=== PATIENT | male | born 1940 | race Caucasian/White ===

== ENCOUNTER 2017-01-06 16:15 | Inpatient (IN) | payer MEDICARE ==
[~2017-01-06] VITALS: Ht 182.9 cm; Wt 145.2 kg
[2017-01-06] VITALS (19 sets, daily range): BP systolic 0–150; BP diastolic 0–82; PULSE 48–84; RESP 8–24; TEMP 96.8–97.5; O2SAT 94–100
[~2017-01-06 16:15] MED LIST: ALBU0.08 NEB; FOSA70TA PO; FURO1TAB62 PO; LEVO50TA4 PO; LISI-515 PO; METO100T PO; OXYC1TAB63 PO; POTA20TA5 PO; SENN1TAB2 PO; VITA2000 PO; XARE20TA PO
[2017-01-06] MEDS ORDERED: NOREPINEPHRINE 4 MG/4 ML AMP ONE (16:35)
[2017-01-06] MEDS ORDERED: SODIUM CHLORIDE 0.9% FLUSH 5 ML FLUSH IVF PRN (17:15)
[2017-01-06] MEDS ORDERED: ASPIRIN 300 MG SUPP RECTAL ONE (17:15)
[2017-01-06] MEDS ORDERED: LEVO25TA4 PO (17:19)
[2017-01-06] MEDS ORDERED: LISI-515 PO (17:19)
[2017-01-06] MEDS ORDERED: XARE20TA PO (17:19)
--- NOTE | 2017-01-06 17:39 | RADRPT ---
EXAM DATE/TIME: 01/06/2017 17:12 [facility] COMPARISON: No previous studies available for comparison. INDICATIONS : Post intubation. MEDICAL HISTORY : Unobtainable. SURGICAL HISTORY : Unobtainable. ENCOUNTER: Initial ACUITY: 1 day PAIN SCORE: Non-responsive. LOCATION: Bilateral chest FINDINGS: A single view of the chest demonstrates the lungs to be symmetrically aerated without evidence of mas s, infiltrate or effusion. The cardiomediastinal contours are unremarkable. Osseous structures are intact. ET tube terminates just at the albaro pull back 3-4 cm recommended. Elevation right hemidiaph ragm CONCLUSION: ET tube terminates at the albaro pull back 3-4 cm recommended. Greg Oakes MD on January 06, 2017 at 17:37 Board Certified Radiologist. This report was verified electronically.
[2017-01-06] MEDS ORDERED: SODIUM CHLOR 0.9% 1000 ML INJ 1,000 ML IV SCH (17:44)
[2017-01-06] MEDS ORDERED: SENNOSIDES 8.6 MG TAB PO PRN (17:45)
[2017-01-06] MEDS ORDERED: CHLORHEXIDINE GLUCONATE 2 % 1 PACK (2 CLOTHS) TOP PRN (17:45)
[2017-01-06] MEDS ORDERED: fentaNYL DRIP 250 ML IV SCH (17:45)
[2017-01-06] MEDS ORDERED: NOREPINEPHRINE-DEXTROSE DRIP 250 ML IV SCH (17:45)
[2017-01-06] MEDS ORDERED: PROPOFOL 1000 MG/100 ML INJ 100 ML IV SCH (17:45)
[2017-01-06] MEDS ORDERED: SODIUM CHLORIDE 0.9% FLUSH 5 ML FLUSH IV FLUSH PRN (17:45)
[2017-01-06] MEDS ORDERED: ACETAMINOPHEN 325 MG TAB PO PRN (17:45)
[2017-01-06] MEDS ORDERED: ONDANSETRON HCL 4 MG/2 ML VIAL IV PRN (17:45)
[2017-01-06] MEDS ORDERED: MISCELLANEOUS NURSING INFORMATION XX SCH (17:45)
[2017-01-06] MEDS ORDERED: AMIODARONE INJ 900 MG in D5W 500 ML (EXCEL BAG) 482 ML IV SCH (17:45)
[2017-01-06] MEDS ORDERED: RESP: ALBUTEROL 2.5 MG/IPRATROPIUM 0.5 MG NEB (PRN) INH (17:45)
[2017-01-06 17:57] LABS: BLOOD GAS BASE EXCESS -6.9 mmol/L (-2-2); BLOOD GAS CARBOXYHEMOGLOBIN 1.7 % (0-4); BLOOD GAS HCO3 19 mmol/L (22-26); BLOOD GAS METHEMOGLOBIN 2.2 % (0-2); BLOOD GAS O2 HGB SATURATION 90 % (90-100); BLOOD GAS PCO2 45 mmHg (38-42); BLOOD GAS PO2 78 mmHG (61-120); BLOOD GAS TOTAL HGB 15.9 G/DL (12.0-16.0); TEMP CORR TO 98.6
[2017-01-06 17:58] LABS: CRITICAL VALUE YES; DRAW SITE RT RADIAL; FIO2 100 %; NUMBER OF ARTERIAL PUNCTURES 1; OXYGEN DEVICE VENTILATOR; STAT NO; VENT SETTINGS A/C14/550/PEEP10
--- NOTE | 2017-01-06 18:01 | HHI.HP ---
[facility] Service Critical Care Medicine Primary Care Physician Andreina Hayes MD Admission Diagnosis S/P Cardiac arrest Diagnosis: (1) Cardiac arrest Diagnosis: Principal (2) V tach Diagnosis: Principal (3) Coronary artery disease Diagnosis: Principal (4) Dilated cardiomyopathy Diagnosis: Principal (5) Aortic valve sclerosis Diagnosis: Principal (6) Left bundle branch block Diagnosis: Principal (7) Anticoagulant long-term use Diagnosis: Principal (8) Hypothyroidism Diagnosis: Principal (9) Osteoarthritis Diagnosis: Principal (10) Cardiogenic shock Diagnosis: Principal (11) Obstructive sleep apnea Diagnosis: Principal (12) Acute respiratory failure Diagnosis: Principal Chief Complaint: Witnessed V. tach arrest Travel History International Travel<30 Days: No Contact w/Intl Traveler <30 Da: No Traveled to Known Affected Are: No History of Present Illness 76-year-old male. Real name is Karthikeyan Zapata. [birth year][address] [place]. 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 He presented the [facility] with the following history. At home, patient was in an argument with her son and girlfriend. He certainly clashes heart. CPR was initiated by EMS. Each is noted to be in V. tach, V. fib possibly torsades and was in asystole upon arrival to [facility]. Patient received 9 mg epinephrine, 4 and 50 mg amiodarone, 3 mg lidocaine and 2 g magnesium prior to arrival. CPR continued this facility where he received 5 mill grams epinephrine , 2 ampules sodium bicarbonate, one ampule of calcium chloride and was defibrillated twice with 203 100 J. He is currently on a Levophed drip. All laboratory are currently pending with return of spontaneous circulation 55 minutes and a code. Patient is currently in decerebrate type positioning. Pupils are slightly reactive and sluggish. Overbreathing the ventilator. Review of Systems ROS Limitations: Intubated Past Family Social History Allergies: Coded Allergies: No Known Allergies (Unverified , 01/06/17) Past Medical History Hypothyroidism Hypertension Dilated cardiopathy ejection fraction 37% 2012 Aortic valve sclerosis Coronary artery disease Dyslipidemia Chronic left bundle branch block DJD Chronic Xarelto use obstructive sleep apnea History of CT 5 Past Surgical History Bilateral total knee replacements Lipoma removal right back Reported Medications Previously on lisinopril 20 mg twice a day Xarelto 20 mg by mouth daily Metoprolol 100 mg by mouth twice a day Fosamax 70 mg by mouth daily Levoxyl 50 g daily Lasix 20 mg by mouth twice a day Potassium chloride 20 mEq by mouth twice a day Vitamin D 2000 units twice a day Senokot with Colace 1 tablet twice a day Active Ordered Medications Reviewed in EMR Family History Mother with heart failure and diabetes. Father with cirrhosis Social History Quit Tobacco 45 years ago. No documented alcohol or IV drug use. Physical Exam Vital Signs Vital Signs Date Time Temp Pulse Resp B/P Pulse Ox O2 Delivery O2 Flow Rate FiO2 01/06/17 17:40 72 12 127/60 95 Ventilator 100 01/06/17 17:15 72 12 108/57 95 Ventilator 100 01/06/17 17:10 100 01/06/17 17:08 96.8 76 12 96 Ventilator 100 01/06/17 16:57 76 101/66 96 01/06/17 16:54 72 103/58 94 100 01/06/17 16:45 58 83/56 94 100 01/06/17 16:39 48 133/80 94 100 01/06/17 16:20 94 Bag Valve 01/06/17 16:18 0/0 94 Physical Exam GENERAL: 76-year-old male, critically ill currently resting in bed in no acute distress SKIN: Warm and dry. No rash HEAD: Atraumatic. Normocephalic. EYES: Pupils equal and round about 2 mm bilaterally and sluggish. No scleral icterus. No injection or drainage. ENT: No nasal bleeding or discharge. Mucous membranes pink and moist. Orotracheally intubated NECK: Trachea midline. No JVD. Supple CARDIOVASCULAR: Bradycardic, RR. S1, S2. No S4. RESPIRATORY: Minutes per sounds throughout due to body habitus Breath sounds equal bilaterally. GASTROINTESTINAL: Abdomen soft, obese. Bowel sounds are not appreciated. Hepatic and splenic margins not palpable. MUSCULOSKELETAL: Extremities with trace lower extremity nonpitting edema. No obvious deformities. NEUROLOGICAL: Sedate on the ventilator. Positive corneal reflex. Positive gag. Downward toes. Decerebrate Positioning bilateral upper extremities. Imaging Last Impressions Chest X-Ray 01/06/17 0686 Signed Impressions: Service Date/Time: Friday, January 06, 2017 17:12 - CONCLUSION: ET tube terminates at the albaro pull back 3-4 cm recommended. Greg Oakes MD Assessment and Plan Assessment and Plan Neuro/Psych: Acute encephalopathy rule out anoxic brain injury CT head ordered with Xarelto use status post 55 minute code Patient was ordered propofol/fentanyl drips for sedation/analgesia while intubated Goal of RA SS -2 Daily sedation vacation Possibly involve hypothermia protocol which involved Nimbex drip. CV: Witnessed V. tach arrest Coronary disease History of CT 5 Dilated cardiopathy ejection was 37% 2012 Aortic valve sclerosis Hypertension Dr. Wallis/cardiology notified. EKG revealed sinus bradycardia/left bundle branch block which is chronic. Troponin is currently pending Stat echocardiogram ordered. We'll cycle troponins every 6 hours 2 Consider hypothermia protocol Currently on amiodarone drip. Resp: Acute hypoxemic respiratory failure History of obstructive sleep apnea ACV 15/550/10/100 Ventilator bundle Bronchodilator therapy every 6 hours and as needed Spontaneous breathing trials when clinically indicated Chest x-ray Revealed ET tube at albaro. We'll pull back 2-3 cm to reevaluate GI: Patient is currently nothing by mouth Protonix for GI prophylaxis Colace/as needed Senokot for bowel regimen : Soler will be placed for accurate I's and O's in a critically ill patient Endo: Hypothyroidism Sliding-scale insulin with Accu-Cheks to maintain euglycemia/medium regimen every 6 hours Continue Levoxyl 25 g by mouth daily. Check TSH Renal: Follow-up on BMP. Last creatinine within normal limits. Heme: Chronic Xarelto use CBC currently within normal limits. Check coags ID: Monitor for infection MSK: Morbid obesity DJD Weight loss encouraged. PT evaluate and treat FEN: Follow-up on BMP. Access - Currently with right femoral TLC. Placed in ED day #1 Prophylaxis - GI - Protonix - DVT - SCD/Xarelto use Critical Care: The total critical care time was 95 minutes. Time to perform other separately billable procedures was not included in the critical care time. Addendum: Patient re evaluated after arrival to ICU. Unchanged neuro exam. CT head is pending. Remains on 11 mcg/min of Levophed and will re evaluate after CT head for induced hypothermia. If remains on single pressor, will initiate induced hypothermia Code Status Full code Discussed Condition With ED physician. Son and girlfriend. Care plan discussed and all questions answered. Problem Qualifiers (1) Coronary artery disease: (2) Hypothyroidism: Qualified Code: E03.9 - Hypothyroidism, unspecified type (3) Osteoarthritis: Frank Ansari MD Jan 06, 2017 18:01 Sary Pardo MD Jan 06, 2017 19:27
[2017-01-06 18:02] LABS: AUTOMATED NEUTROPHIL # 3.1 TH/MM3 (1.8-7.7); BASOPHIL # 0.1 TH/MM3 (0-0.2); BASOPHIL % 0.4 % (0.0-2.0); EOSINOPHIL # 0.1 TH/MM3 (0-0.4); HEMATOCRIT 47.2 % (39.0-51.0); LYMPH % 69.1 % (9.0-44.0); LYMPHOCYTE # 8.8 TH/MM3 (1.0-4.8); MEAN CELL VOLUME 96.3 FL (80.0-100.0); MEAN CORPUSCULAR HGB CONC 32.2 % (32.0-36.0); MONO % 5.1 % (0.0-8.0); NEUT % 24.4 % (16.0-70.0); PLATELET COUNT 158 TH/MM3 (150-450); RED CELL DISTRIBUTION WIDTH 13.6 % (11.6-17.2); WHITE BLOOD COUNT 12.7 TH/MM3 (4.0-11.0)
[2017-01-06 18:07] LABS: BACTERIA, URINE FEW /hpf; BLOOD, URINE MOD (NEG); COMMENT (UR) CATH-CULTURE IND; CULTURE IF INDICATED CATH CULTURE IND; GLUCOSE,URINE NEG (NEG); HEMO FLAGS AUTO DIFF; HYALINE CAST, URINE 5 /lpf (RARE); KETONE, URINE NEG (NEG); MUCUS URINE FEW /lpf (OCC); NITRITE,URINE NEG (NEG); SQUAMOUS EPITHELIAL CELL URINE <1 /hpf (0-5); URINE COLOR YELLOW (YELLW/STRAW)
[2017-01-06 18:10] LABS: APTT (PATIENT) 25.7 SEC (24.3-30.1); INTERNATIONAL NORMALIZED RATIO 1.2 RATIO; PROTHROMBIN TIME - PATIENT 13.6 SEC (9.8-11.6)
--- NOTE | 2017-01-06 18:15 | PD ---
HPI Chief Complaint: Code Blue Time Seen by Provider: 17:13 Travel History International Travel<30 days: No Contact w/Intl Traveler<30days: No Traveled to known affect area: No History of Present Illness HPI Patient is a 76 year old male BIBEMS in cardiac arrest, CPR in progress, after he passed out at home. Per family, he was arguing with his son and his son's girlfriend when he suddenly grabbed his chest and collapsed. Per , he has had 5 "mini heart attacks" and was told by his continuous still operator that "the bottom" of his heart does not work properly. His says he has not been complaining of anything lately and was feeling well prior to the event. Per family, he had been working on losing weight and succeeding. They report he has not had fevers or any illness recently. [facility] Past Medical History Medical History: Unable to Obtain Past Surgical History Surgical History: Unable to Obtain Social History Tobacco Use: No Allergies-Medications (Allergen,Severity, Reaction): Coded Allergies: No Known Allergies (Verified , 11/26/16) Reported Meds & Prescriptions Reported Meds & Active Scripts Active Albuterol Neb (Albuterol Sulfate) 2.5 Mg/3 Ml Neb 2.5 Mg NEB Q6HR Lasix (Furosemide) 20 Mg Tab 20 Mg PO BID Take one tablet in the morning and then 1 tablet at 2-3 pm Reported Senna-Docusate Sodium (Sennosides-Docusate Sodium) 8.6-50 Mg Tab 2 Tab PO DAILY Vitamin D3 (Cholecalciferol) 2,000 Unit Cap 2,000 Units PO BID Potassium Chloride Microencaps 20 Meq Tab 20 Meq PO Q12HR Xarelto (Rivaroxaban) 20 Mg Tab 20 Mg PO DAILY Oxycodone-Acetaminophen 5-325 mg Tab 1 Tab PO Q6H PRN Metoprolol Tartrate 100 Mg Tab 100 Mg PO BID Lisinopril 20 Mg Tab 20 Mg PO BID Levothyroxine (Levothyroxine Sodium) 50 Mcg Tab 50 Mcg PO DAILY Fosamax (Alendronate Sodium) 70 Mg Tab 70 Mg PO Q7D Levothyroxine (Levothyroxine Sodium) 25 Mcg Tab 25 Mcg PO DAILY Lisinopril 20 Mg Tab 20 Mg PO DAILY Xarelto (Rivaroxaban) 20 Mg Tab 20 Mg PO DAILY Review of Systems ROS Limitations: Clinical Condition, Unresponsive Physical Exam Exam Limitations: Clinical Condition Narrative GENERAL: Unresponsive, intubated SKIN: Warm and dry. No wounds. HEAD: Atraumatic. Normocephalic. EYES: Pupils equal and round, unreactive. No scleral icterus. ENT: Mucous membranes pink and moist. NECK: Trachea midline. No JVD. CARDIOVASCULAR: absent pulse RESPIRATORY: No spontaneous breathing. Breath sounds equal bilaterally. GASTROINTESTINAL: Abdomen soft, nondistended. MUSCULOSKELETAL: No obvious deformities. No clubbing. No cyanosis. No edema. NEUROLOGICAL: unconscious Data Data Last Documented VS Orders Norepinephrine Inj (Levophed Inj) (01/06/17 16:35) Electrocardiogram (01/06/17 16:37) Labs Laboratory Tests Test 01/06/17 17:00 White Blood Count 12.7 TH/MM3 Red Blood Count 4.90 MIL/MM3 Hemoglobin 15.2 GM/DL Hematocrit 47.2 % Mean Corpuscular Volume 96.3 FL Mean Corpuscular Hemoglobin 31.0 PG Mean Corpuscular Hemoglobin 32.2 % Concent Red Cell Distribution Width 13.6 % Platelet Count 158 TH/MM3 Mean Platelet Volume 11.3 FL Neutrophils (%) (Auto) 24.4 % Lymphocytes (%) (Auto) 69.1 % Monocytes (%) (Auto) 5.1 % Eosinophils (%) (Auto) 1.0 % Basophils (%) (Auto) 0.4 % Neutrophils # (Auto) 3.1 TH/MM3 Lymphocytes # (Auto) 8.8 TH/MM3 Monocytes # (Auto) 0.6 TH/MM3 Eosinophils # (Auto) 0.1 TH/MM3 Basophils # (Auto) 0.1 TH/MM3 CBC Comment AUTO DIFF Differential Total Cells 100 Counted Neutrophils % (Manual) 37 % Band Neutrophils % 1 % Lymphocytes % 50 % Monocytes % 9 % Eosinophils % 2 % Neutrophils # (Manual) 5.0 TH/MM3 Metamyelocytes 1 % Differential Comment FINAL DIFF MANUAL Platelet Estimate NORMAL Platelet Morphology Comment NORMAL Acanthocytes OCC Urine Color YELLOW Urine Turbidity HAZY Urine pH 7.0 Urine Specific [place] 1.012 Urine Protein 30 mg/dL Urine Glucose (UA) NEG mg/dL Urine Ketones NEG mg/dL Urine Occult Blood MOD Urine Nitrite NEG Urine Bilirubin NEG Urine Urobilinogen LESS THAN 2.0 MG/DL Urine Leukocyte Esterase TRACE Urine RBC /hpf Urine WBC 10 /hpf Urine Squamous Epithelial <1 /hpf Cells Urine Amorphous Sediment FEW Urine Bacteria FEW /hpf Urine Hyaline Casts 5 /lpf Urine Mucus FEW /lpf Microscopic Urinalysis Comment CATH-CULTURE IND MDM Medical Decision Making Medical Screen Exam Complete: Yes Emergency Medical Condition: Yes Interpretation(s) ECG shows LBBB with deep ST depressions II, avF, V4-V6 Differential Diagnosis STEMI vs sepsis vs ICH Narrative Course Patient is a 76 year old male BIBEMS in cardiac arrest. Per EMS, they performed CPR for 35 minutes prior to arrival. EMS states he was in Vfib/Vtach the entire time. He received 9 doses of epinephrine, 450 mg Amiodarone, 300mg Lidocaine, and 11 defibrillations, prior to arrival. They report he went into asystole just before coming into the ED. Patient was intubated by EMS. In the ED, ACLS protocols were followed. Patient received 5 doses of epinepherine, 1 g of Calcium, 2 amps of bicarb and 2 rounds of defibrillation at 200J then 300J. Patient had return of pulses after last epinephrine dose and defibrillation. Patient was started on Levophed as well as Amiodarone drip. Femoral central line placed. CXR shows ETT in place, slightly deep. Tube was repositioned by respiratory therapist. Patient admitted to ICU. I spoke with Dr. Wallis of cardiology regarding going to the laborer plumbing. At this time, Dr. Wallis feels the patient is not stable enough and would like an echo performed. Critical Care Narrative Aggregate critical care time was 60 minutes. Time to perform other separately billable procedures was not included in the critical care time. My time did not include minutes spent treating any other patients simultaneously or on activities that did not directly contribute to the patient's treatment. The services I provided to this patient were to treat and/or prevent clinically significant deterioration that could result in: Serious illness or I provided critical care services requiring my management, as noted below: Chart data review, documentation time, medication orders and management, vital sign assessments/reviewing monitor data, ordering and reviewing lab tests, ordering and interpreting/reviewing x-rays and diagnostic studies, care of the patient and discussion of the patient with the admitting physicians. Procedures Procedure Narrative CENTRAL VENOUS LINE: The site was prepped with Betadine and sterilely draped. It was infiltrated with 1% lidocaine plain. The deep vein was cannulated using normal Seldinger technique. A triple lumen central line was placed in the right femoral site and secured with simple interrupted suture. The site was sterilely dressed. The patient tolerated the procedure well. Diagnosis Primary Impression: Cardiac arrest Admitting Information Admitting Physician Requests: it Melonie Madden MD Jan 06, 2017 18:15
[2017-01-06 18:17] LABS: BICARBONATE 20.9 MEQ/L (21.0-32.0); MAGNESIUM 3.4 MG/DL (1.5-2.5); POTASSIUM 3.4 MEQ/L (3.5-5.1); TOTAL BILIRUBIN ADULT 0.4 MG/DL (0.2-1.0)
[2017-01-06] MEDS ORDERED: POTASSIUM CHLORIDE INJ 30 MEQ in SODIUM CHLORIDE 0.9% INJ 100 ML IV-CENTRAL ONE (18:45)
[2017-01-06 18:47] LABS: BLOOD GAS VENOUS BASE EXCESS -2.7 mmol/L (-2-2); BLOOD GAS VENOUS HCO3 24 mmol/L (22-26); BLOOD GAS VENOUS O2 CONTENT 10.6 Vol % (9.0-17.0); BLOOD GAS VENOUS O2 HGB SAT 45 % (70-76); BLOOD GAS VENOUS PCO2 62 mmHg (44-48); BLOOD GAS VENOUS PO2 34 mmHg (35-40); BLOOD GAS VENOUS pH 7.21 (7.360-7.400); TEMP CORR TO 98.6
[2017-01-06 18:48] LABS: CRITICAL VALUE YES; FIO2 100 %; OXYGEN DEVICE VENTILATOR
[2017-01-06 18:49] LABS: DRAW SITE CENTRAL LINE; STAT NO
[2017-01-06 18:57] LABS: BANDS 1 % (0-6); EOSINOPHILS 2 % (0-4); METAMYELOCYTES 1 % (0-1); POLYS (SEG NEUTROPHILS) 37 % (16-70); WBC DIFF SAMPLE 100
[2017-01-06 18:58] LABS: ACANTHOCYTES OCC (NORMAL); PLATELET ESTIMATE SMEAR NORMAL (NORMAL); PLATELET MORPHOLOGY NORMAL (NORMAL); SCAN/DIFF FINAL DIFF MANUAL
[2017-01-06] MEDS ORDERED: SODIUM BICARBONATE 8.4% INJ 50 MEQ/50 ML SYR IV PUSH ONE (19:15)
--- NOTE | 2017-01-06 19:44 | RADRPT ---
EXAM DATE/TIME: 01/06/2017 19:15 [facility] COMPARISON: No previous studies available for comparison. INDICATIONS : Altered mental status today. RADIATION DOSE: 56.35 CTDIvol (mGy) MEDICAL HISTORY : Non-responsive. SURGICAL HISTORY : Non-responsive. ENCOUNTER: Initial ACUITY: 1 day PAIN SCALE: 0/10 LOCATION: Bilateral head TECHNIQUE: Multiple contiguous axial images were obtained of the head. Using automated exposure control and adj ustment of the mA and/or kV according to patient size, radiation dose was kept as low as reasonably a chievable to obtain optimal diagnostic quality images. FINDINGS: CEREBRUM: The ventricles are normal for age. No evidence of midline shift, mass lesion, hemorrhage or acute in farction. No extra-axial fluid collections are seen. Chronic low attenuation seen in the periventric ular white matter. POSTERIOR FOSSA: The cerebellum and brainstem are intact. The 4th ventricle is midline. The cerebellopontine angle i s unremarkable. EXTRACRANIAL: There is mucoperiosteal thickening of the ethmoid air cells and posterior nasal cavity. There is near -complete opacification of the posterior nasopharynx noted. SKULL: The calvaria is intact. No evidence of skull fracture. CONCLUSION: 1. No acute intracranial abnormality demonstrated. 2. Chronic white matter changes. 3. Sinusitis and near-complete opacification of the posterior nasopharynx, presumably related to secr etions. Patient is intubated. After the patient is extubated, correlation for the possibility of a na sopharyngeal mass is recommended. Edvin Lucas MD on January 06, 2017 at 19:39 Board Certified Radiologist. This report was verified electronically.
[2017-01-06 19:47] LABS: LACTIC ACID GHOST NOT REPORTABLE
[2017-01-06] MEDS ORDERED: POTASSIUM CHLOR 40 MEQ PREMIX 100 ML IV-CENTRAL PRN ×2 (20:00)
[2017-01-06] MEDS ORDERED: POTASSIUM PHOSPHATE MONOBASIC 500 MG TAB PO/TUBE PRN (20:00)
[2017-01-06] MEDS ORDERED: MAGNESIUM OXIDE 400 MG TAB PO PRN (20:00)
[2017-01-06] MEDS ORDERED: MIDAZOLAM HCL 2 MG/2 ML VIAL IV ONE (20:00)
[2017-01-06] MEDS ORDERED: MAGNESIUM SULFATE INJ 2 GM in SODIUM CHLORIDE 0.9% INJ 96 ML IV PRN (20:00)
[2017-01-06] MEDS ORDERED: POTASSIUM CHLOR 20 MEQ PREMIX 100 ML IV PRN ×2 (20:00)
[2017-01-06] MEDS ORDERED: SODIUM PHOSPHATE INJ 30 MMOL in SODIUM CHLOR 0.9% 250 ML INJ 240 ML IV PRN (20:00)
[2017-01-06] MEDS ORDERED: VECURONIUM BROMIDE 10 MG VIAL IV ONE (20:00)
[2017-01-06] MEDS ORDERED: POTASSIUM CL 40 MEQ/30 ML LIQ UDC PO/TUBE PRN ×2 (20:00)
[2017-01-06] MEDS ORDERED: LORazepam 2 MG/ML VIAL IV PRN (20:00)
[2017-01-06] MEDS ORDERED: MAGNESIUM SULFATE INJ 4 GM in SODIUM CHLORIDE 0.9% INJ 92 ML IV PRN (20:00)
[2017-01-06] MEDS ORDERED: POTASSIUM PHOSPHATE MONOBASIC 500 MG TAB PO PRN (20:00)
[2017-01-06] MEDS ORDERED: POTASSIUM PHOSPHATE INJ 30 MMOL in SODIUM CHLOR 0.9% 250 ML INJ 250 ML IV PRN (20:00)
--- NOTE | 2017-01-06 20:37 | PD.PROCEDR ---
Central Line Procedure REASON FOR PROCEDURE Central venous access PROCEDURE PERFORMED Central line placement: US guided L femoral heat exchange catheter CONSENT Informed consent for procedure was obtained and time out performed ANESTHESIA Local injection of 1% Lidocaine DESCRIPTION OF THE PROCEDURE The patient was placed in supine, mild Trendelenburg position. The area was exposed and cleansed with ChloraPrep, times two. Large sterile drape was used to cover the patient, with the site exposed, under sterile conditions including cap, face mask, sterile gown, and sterile gloves. On single attempt, the introducer needle was inserted with negative pressure in syringe and venous flash was obtained. The guide wire was then advanced without any restriction and the needle was removed. The dilator was used without any complications. Using Seldinger technique the 45 cm 5 lumen heat exchange catheter was advanced over the guide wire to a depth of 41 centimeters. The guide wire was removed. All ports were aspirated with dark venous blood return and flushed easily with sterile saline. All ports were capped. Antibiotic disc was placed around central line at puncture site. The central line was secured to the skin with two interrupted 2.0 silk sutures. The area was bandaged with sterile see- through central line bandage. RADIOLOGICAL DATA Ultrasound guidance was used to locate L femoral vein COMPLICATIONS: No apparent complications ESTIMATED BLOOD LOSS: Less than 1 cc. Sary Pardo MD Jan 06, 2017 20:37
[2017-01-06 20:59] LABS: POTASSIUM 3.5 MEQ/L (3.5-5.1); TOTAL BILIRUBIN ADULT 0.7 MG/DL (0.2-1.0)
[2017-01-06] MEDS: DOCUSATE SODIUM 100 MG CAP PO SCH (21:00)
[2017-01-06] MEDS ORDERED: SODIUM CHLORIDE 0.9% FLUSH 5 ML FLUSH IV FLUSH SCH (21:00)
[2017-01-06] MEDS: RESP: ALBUTEROL 2.5 MG/IPRATROPIUM 0.5 MG NEB (SCH) INH (21:02)
[2017-01-06 21:13] LABS: CALCIUM-PROTEIN CORRECTED 12.1 MG/DL (8.5-10.1)
[2017-01-06] MEDS: SODIUM CHLORIDE 0.9% FLUSH 5 ML FLUSH IVF SCH (21:22)
[2017-01-06] MEDS: SODIUM CHLORIDE 0.9% FLUSH 5 ML FLUSH IVF PRN (21:23)
[2017-01-06] MEDS: fentaNYL DRIP 250 ML IV SCH (21:24)
[2017-01-06] MEDS: MIDAZOLAM 100 MG/ML INJ 100 ML IV SCH (21:25)
[2017-01-06] MEDS: NOREPINEPHRINE INJ 4 MG in SODIUM CHLOR 0.9% 250 ML INJ 250 ML IV SCH (21:25)
[2017-01-06] MEDS: CHLORHEXIDINE 0.12% (ORAL KIT) 15 ML CUP MT SCH (21:27)
[2017-01-06] MEDS: INSULIN NovoLIN REGULAR SUPPLEMENTAL SCALE SQ SCH (21:31)
[2017-01-06] MEDS: CEFEPIME INJ 1,000 MG in SODIUM CHLORIDE 0.9% INJ 100 ML IV SCH (21:35)
[2017-01-06] MEDS ORDERED: SODIUM BICARBONATE 8.4% SOLN 50 MEQ/50 ML VIAL IV SCH (22:45)
[2017-01-06] MEDS ORDERED: SODIUM CHLOR 0.9% 1000 ML INJ 2,000 ML IV SCH (23:00)
[2017-01-06 23:03] LABS: BLOOD GAS BASE EXCESS -6.1 mmol/L (-2-2); BLOOD GAS CARBOXYHEMOGLOBIN 0.9 % (0-4); BLOOD GAS HCO3 19 mmol/L (22-26); BLOOD GAS O2 HGB SATURATION 98 % (90-100); BLOOD GAS OXYGEN CONTENT 22.8 Vol % (12.0-20.0); BLOOD GAS PCO2 40 mmHg (38-42); BLOOD GAS PO2 338 mmHg (61-120); CRITICAL VALUE NO; DRAW SITE ART LINE; FIO2 100 %; OXYGEN DEVICE VENTILATOR; STAT NO; TEMP CORR TO 98.6
[2017-01-07] VITALS (18 sets, daily range): BP systolic 89–115; BP diastolic 50–82; PULSE 60–81; RESP 18–25; TEMP 91.4–91.6; O2SAT 93–100
[2017-01-07] MEDS: ARTIFICIAL TEARS OPTH SOLN 15 ML BTL EACH EYE SCH ×4 (00:04→17:45)
[2017-01-07] MEDS: ARTIFICIAL TEARS OPTH OINT 3.5 APPLIC/3.5 GM TUBO EACH EYE SCH ×7 (00:04→21:00)
[2017-01-07] MEDS: INSULIN NovoLIN REGULAR SUPPLEMENTAL SCALE SQ SCH ×5 (00:40→20:59)
[2017-01-07] MEDS: MEPERIDINE HCL 25 MG/ML VIAL IVP PRN ×2 (00:44→05:52)
[2017-01-07] MEDS: SODIUM CHLORIDE 0.9% FLUSH 5 ML FLUSH IVF PRN ×2 (00:45→05:52)
[2017-01-07 01:10] LABS: AMPHETAMINE, URINE NEG (NEG); BARBITURATES, URINE NEG (NEG); COCAINE, URINE NEG (NEG)
[2017-01-07 01:14] LABS: BACTERIA, URINE FEW /hpf; BLOOD, URINE LARGE (NEG); GLUCOSE,URINE 150 mg/dL (NEG); KETONE, URINE NEG (NEG); NITRITE,URINE NEG (NEG); PH, URINE 6.5 (5.0-8.5)
[2017-01-07 01:15] LABS: COMMENT (UR) CATH-CULTURE IND; CULTURE IF INDICATED CATH CULTURE IND; URINE COLOR RED (YELLW/STRAW)
[2017-01-07] MEDS: RESP: ALBUTEROL 2.5 MG/IPRATROPIUM 0.5 MG NEB (SCH) INH ×4 (03:43→20:04)
[2017-01-07 03:48] LABS: AUTOMATED NEUTROPHIL # 11.8 TH/MM3 (1.8-7.7); HEMO FLAGS DIFF FINAL; LYMPH % 7.1 % (9.0-44.0); MEAN CELL VOLUME 93.6 FL (80.0-100.0); MEAN CORPUSCULAR HEMOGLOBIN 30.7 PG (27.0-34.0); MEAN CORPUSCULAR HGB CONC 32.9 % (32.0-36.0); MONO % 9.4 % (0.0-8.0); NEUT % 83.5 % (16.0-70.0); PLATELET COUNT 132 TH/MM3 (150-450); RED BLOOD COUNT 4.49 MIL/MM3 (4.50-5.90); RED CELL DISTRIBUTION WIDTH 13.1 % (11.6-17.2); WHITE BLOOD COUNT 14.1 TH/MM3 (4.0-11.0)
[2017-01-07 03:54] LABS: APTT (PATIENT) 29.2 SEC (24.3-30.1); INTERNATIONAL NORMALIZED RATIO 1.4 RATIO; PROTHROMBIN TIME - PATIENT 15.3 SEC (9.8-11.6)
[2017-01-07] MEDS: CHLORHEXIDINE GLUCONATE 2 % 1 PACK (2 CLOTHS) TOP SCH (04:00)
[2017-01-07 04:22] LABS: ALKALINE PHOSPHATASE 76 U/L (45-117); ALT (GPT) 51 U/L (12-78); ANION GAP 15 MEQ/L (5-15); AST (GOT) 184 U/L (15-37); BICARBONATE 16.7 MEQ/L (21.0-32.0); BLOOD UREA NITROGEN 29 MG/DL (7-18); CHLORIDE 118 MEQ/L (98-107); GLOMERULAR FILTRATION RATE 28 ML/MIN (>89); HDL CHOLESTEROL 46.8 MG/DL (40.0-60.0); LDL CHOLESTEROL 53 MG/DL (0-99); MAGNESIUM 1.6 MG/DL (1.5-2.5); POTASSIUM 3.1 MEQ/L (3.5-5.1); SODIUM (NA) 150 MEQ/L (136-145); TOTAL BILIRUBIN ADULT 0.6 MG/DL (0.2-1.0)
[2017-01-07] MEDS ORDERED: SODIUM BICARBONATE 8.4% INJ 50 MEQ/50 ML SYR IV ONE (05:00)
[2017-01-07] MEDS ORDERED: CALCIUM CHLORIDE 10% SOLN 1 GRAM/10 ML SYR IV ONE (05:00)
[2017-01-07] MEDS ORDERED: EPINEPHrine HCL (1:10,000) 1 MG/10 ML SYRINGE IV ONE (05:00)
[2017-01-07 05:17] LABS: BLOOD GAS BASE EXCESS -12.4 mmol/L (-2-2); BLOOD GAS HCO3 14 mmol/L (22-26); BLOOD GAS METHEMOGLOBIN 0.9 % (0-2); BLOOD GAS O2 HGB SATURATION 96 % (90-100); BLOOD GAS OXYGEN CONTENT 18.4 Vol % (12.0-20.0); BLOOD GAS PCO2 36 mmHg (38-42); BLOOD GAS PO2 119 mmHg (61-120); BLOOD GAS TOTAL HGB 13.6 G/DL (12.0-16.0); TEMP CORR TO 98.6
[2017-01-07 05:18] LABS: CRITICAL VALUE YES; FIO2 45 %; OXYGEN DEVICE VENTILATOR; VENT SETTINGS AC18/600/PEEP10
[2017-01-07 05:19] LABS: DRAW SITE ART LINE; STAT NO
[2017-01-07] MEDS: LEVOTHYROXINE SODIUM 25 MCG TAB PO SCH (05:27)
[2017-01-07] MEDS ORDERED: SODIUM BICARBONATE 8.4% INJ 50 MEQ/50 ML SYR IV PUSH ONE ×2 (05:30→09:00)
[2017-01-07] MEDS ORDERED: SODIUM BICARBONATE 8.4% INJ 150 MEQ in DEXTROSE 5% IN WATE 1000ML INJ 1,000 ML IV SCH ×2 (05:30)
--- NOTE | 2017-01-07 06:23 | RADRPT ---
EXAM DATE/TIME: 01/07/2017 04:46 [facility] COMPARISON: CHEST SINGLE AP, January 06, 2017, 17:12. INDICATIONS : Short of breath. MEDICAL HISTORY : None. SURGICAL HISTORY : None. ENCOUNTER: Subsequent ACUITY: 2 days PAIN SCORE: Non-responsive. LOCATION: Bilateral chest FINDINGS: ET tube and NG tube are well placed. The heart size is enlarged. The aorta is widened. There is incre ased density in the left upper lung. Right lung is clear. CONCLUSION: Mild consolidation or atelectasis in the left upper lung. Edvin Miller MD on January 07, 2017 at 6:20 Board Certified Radiologist. This report was verified electronically.
[2017-01-07] MEDS: fentaNYL DRIP 250 ML IV SCH ×2 (06:31→21:00)
[2017-01-07] MEDS: CHLORHEXIDINE 0.12% (ORAL KIT) 15 ML CUP MT SCH ×2 (08:00→20:59)
--- NOTE | 2017-01-07 08:34 | HHI.CCPN ---
Subjective Remarks/Hospital Course 76-year-old male. Real name is Karthikeyan Zapata. 05/27/1932. Patient Ashley Basilio. 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 He presented the [facility] with the following history. At home, patient was in an argument with her son and girlfriend. He certainly clashes heart. CPR was initiated by EMS. Each is noted to be in V. tach, V. fib possibly torsades and was in asystole upon arrival to [facility]. Patient received 9 mg epinephrine, 4 and 50 mg amiodarone, 3 mg lidocaine and 2 g magnesium prior to arrival. CPR continued this facility where he received 5 mill grams epinephrine , 2 ampules sodium bicarbonate, one ampule of calcium chloride and was defibrillated twice with 203 100 J. He is currently on a Levophed drip. All laboratory are currently pending with return of spontaneous circulation 55 minutes and a code. Patient is currently in decerebrate type positioning. Pupils are slightly reactive and sluggish. Overbreathing the ventilator. Subjective 01/07: Placed on hypothermia protocol overnight. Acquired one dose of Demerol for shivering. Currently well sedated on the ventilator. Minimal pupillary response. No gag. Does not withdraw to pain. 5 cc an hour urine output. Objective Vital Signs Date Time Temp Pulse Resp B/P Pulse Ox O2 Delivery O2 Flow Rate FiO2 01/07/17 07:00 61 01/07/17 04:21 100 50 01/07/17 04:00 91.4 18 93/54 01/06/17 18:05 Ventilator Intake and Output 01/06/17 01/06/17 01/07/17 08:00 16:00 00:00 Intake Total 2217 ml Output Total 30 ml Balance 2187 ml Result Diagram: 01/07/17 0335 01/07/17 0335 Other Results Microbiology Date/Time Procedure Status Source Growth 01/06/17 23:40 Urine Culture Worksheet Urine Catheterized Urine Pending 01/06/17 23:30 Gram Stain Worksheet Sputum Endotracheal Pending 01/06/17 23:30 Sputum Culture Worksheet Sputum Endotracheal Pending Imaging Last Impressions Chest X-Ray 01/07/17 0600 Signed Impressions: Service Date/Time: Saturday, January 07, 2017 04:46 - CONCLUSION: Mild consolidation or atelectasis in the left upper lung. Edvin Miller MD Head CT 01/06/17 1740 Signed Impressions: Service Date/Time: Friday, January 06, 2017 19:15 - CONCLUSION: 1. No acute intracranial abnormality demonstrated. 2. Chronic white matter changes. 3. Sinusitis and near-complete opacification of the posterior nasopharynx, presumably related to secretions. Patient is intubated. After the patient is extubated, correlation for the possibility of a nasopharyngeal mass is recommended. Edvin Lucas MD Objective Remarks GENERAL: 76-year-old male, critically ill currently resting in bed in no acute distress SKIN: Cool and dry. Noted subtle area ecchymosis mid thorax from bruising HEAD: Atraumatic. Normocephalic. EYES: Pupils equal and round about 2 mm bilaterally and sluggish. No scleral icterus. No injection or drainage. ENT: No nasal bleeding or discharge. Mucous membranes pink and moist. Orotracheally intubated NECK: Trachea midline. No JVD. Supple CARDIOVASCULAR: RRR. S1, S2. No S4. I do not appreciate murmur RESPIRATORY: Diminished breath sounds throughout due to body habitus. Breath sounds equal bilaterally. GASTROINTESTINAL: Abdomen soft, obese. Bowel sounds are not appreciated. Hepatic and splenic margins not palpable. MUSCULOSKELETAL: Extremities with trace lower extremity nonpitting edema. No obvious deformities. NEUROLOGICAL: Sedate on the ventilator. Positive corneal reflex. Currently no gag. Does not withdraw to pain or noxious stimuli. Urinary Catheter: Yes Assessment to: Continue Soler insert reason: Prolonged Immobilization Vascular Central Line Catheter: Yes Assessment to: Continue Date of Insertion: Jan 06, 2017 Line: Central Venous Catheter Side: Right Location: Femoral A/P Assessment and Plan Neuro/Psych: Acute encephalopathy rule out anoxic brain injury CT head revealed no acute intracranial findings. Possible mass posterior nasopharynx will likely need reimaging post extubation Patient was ordered Versed drip at 5 mg an hour/fentanyl drips at 150 g an hour for sedation/analgesia while intubated Goal of RASS -2 Daily sedation vacation when clinically indicated Currently on hypothermia protocol CV: Witnessed V. tach arrest Coronary disease History of MT 5 Dilated cardiopathy ejection was 37% 2012 Aortic valve sclerosis Hypertension Lactic acidosis Dr. Wallis/cardiology notified. Dr. Richmond's patient EKG revealed sinus bradycardia/left bundle branch block which is chronic. Troponin is currently pending Stat echocardiogram ordered. Results still pending We'll cycle troponins every 6 hours 2. This was not done last night. Reordered for this morning. Currently on amiodarone drip per protocol. This was discontinued today by cardiology On aspirin 81 mg daily Lipitor 40 no grams by mouth daily. Currently norepinephrine at 12 mcg/m. Add vasopressin and epinephrine as needed to maintain MAP >65 Lactate initially trending down currently 8. Every 6 hours until clear. Resp: Acute hypoxemic respiratory failure History of obstructive sleep apnea ACV 24/600/5/40 Ventilator bundle Bronchodilator therapy every 6 hours and as needed Spontaneous breathing trials when clinically indicated Possible left upper lobe infiltrate on chest x-ray. No pneumothorax Recheck ABG with above ventilator changes GI: Elevated AST - likely cardiac Patient is currently nothing by mouth Start Glucerna 1.5 goal 55 cc an hour Protonix for GI prophylaxis Colace/ Senokot twice a day for bowel regimen : Soler will be placed for accurate I's and O's in a critically ill patient Endo: Hypothyroidism Elevated parathyroid hormone Sliding-scale insulin with Accu-Cheks to maintain euglycemia/medium regimen every 4 hours Continue Levoxyl 25 g by mouth daily. TSH within normal limits Will need parathyroid scan when appropriate Check vitamin D 25, 24 urine calcium Renal: Follow-up on BMP. Last creatinine within normal limits. Heme: Chronic Xarelto use Leukocytosis Thrombocytopenia Recheck CBC in AM. Monitor trends. Re-Check coags in a.m. currently 1.4 ID: Likely UTI Monitor for infection Day #2 cefepime day #1 daily Flagyl UA/sputum pending MSK: Morbid obesity DJD Weight loss encouraged. PT evaluate and treat FEN: Hypo-magnesium Hypernatremia Hypophosphatemia Hypo-magnesium Follow-up on BMP, mag and phosphatase in 100. Will give 2 g mag sulfate, 15 mmol potassium phosphorus IV fluids seems to sterile water with 2 ampules of sodium bicarbonate at 75 cc an hour Access - Currently with left femoral cooling catheter day #2 Prophylaxis - GI - Protonix - DVT - SCD/Xarelto use - likely start subcutaneous heparin in p.m. 01/07 Critical Care: The total critical care time was 55 minutes. Time to perform other separately billable procedures was not included in the critical care time. Addendum: Patient re evaluated after arrival to ICU. Unchanged neuro exam. CT head is pending. Remains on 11 mcg/min of Levophed and will re evaluate after CT head for induced hypothermia. If remains on single pressor, will initiate induced hypothermia Frank Ansari MD Jan 07, 2017 08:34
[2017-01-07] MEDS: SODIUM CHLORIDE 0.9% FLUSH 5 ML FLUSH IVF SCH ×2 (09:00→21:00)
[2017-01-07] MEDS ORDERED: LACTATED RINGER'S 1000 ML INJ 1,000 ML IV ONE (09:00)
[2017-01-07] MEDS ORDERED: POTASSIUM PHOSPHATE INJ 15 MMOL in SODIUM CHLORIDE 0.9% INJ 150 ML IV ONE (09:00)
[2017-01-07] MEDS: NOREPINEPHRINE INJ 4 MG in SODIUM CHLOR 0.9% 250 ML INJ 250 ML IV SCH ×3 (09:14→23:58)
[2017-01-07] MEDS: VASOPRESSIN INJ 40 UNITS in DEXTROSE 5% IN WATER 100ML INJ 98 ML IV SCH ×2 (09:21)
[2017-01-07] MEDS: EPINEPHrine (1:1000) INJ 2 MG in DEXTROSE 5% IN WATER INJ 248 ML IV SCH ×4 (09:36→23:58)
[2017-01-07] MEDS: VECURONIUM BROMIDE 10 MG VIAL IV PRN ×5 (09:37→22:58)
[2017-01-07] MEDS: MAGNESIUM SULFATE 1 GM PREMIX 100 ML IV SCH ×2 (09:58→10:21)
[2017-01-07] MEDS: metroNIDAZOLE 500 MG INJ 100 ML IV SCH ×2 (10:00→16:22)
--- NOTE | 2017-01-07 10:06 | RADRPT ---
EXAM DATE/TIME: 01/07/2017 09:21 [facility] COMPARISON: US KIDNEY/RENAL/BLADDER, February 09, 2010, 19:27. INDICATIONS : Abnormal labs. MEDICAL HISTORY : Hypothyroidism. Cardiac arrest. V tach. Coronary artery disease. Aortic valve sclerosis. SURGICAL HISTORY : Bilateral total knee replacement. Lipoma removal. ENCOUNTER: Initial ACUITY: 1 day PAIN SCORE: Nonresponsive. LOCATION: Bilateral flank MEASUREMENTS: RIGHT KIDNEY: 13.4 x 6.4 x 8.7 cm LEFT KIDNEY: 12.7 x 7.2 x 6.2 cm FINDINGS: Kidneys are echogenic with cortical thinning which can be seen with medical renal disease. No masses or hydronephrosis. There are 2 simple cysts in the lower pole right kidney measuring 30 x 25 x 29 mm and 88 x 82 x 83 mm. Simple cyst in the upper pole left kidney measures 36 x 30 x 39 mm and 37 x 29 x 20 mm. Bladder is empty and not visualized. CONCLUSION: 1. Echogenic kidneys which can be seen with medical renal disease. 2. Bilateral renal cysts. Carlos Alberto Stewart MD on January 07, 2017 at 9:57 Board Certified Radiologist. This report was verified electronically.
[2017-01-07] MEDS: CEFEPIME INJ 1,000 MG in SODIUM CHLORIDE 0.9% INJ 100 ML IV SCH ×2 (10:10→21:00)
[2017-01-07] MEDS: PANTOPRAZOLE SODIUM 40 MG VIAL IV SCH (10:11)
[2017-01-07] MEDS: DOCUSATE SODIUM 100 MG CAP PO SCH ×2 (10:12→21:00)
[2017-01-07] MEDS: POLYETHYLENE GLYCOL 17 GM PKG PO SCH (10:12)
[2017-01-07] MEDS: LACTULOSE SYRUP 20 GM/30 ML CUP PO SCH (10:12)
[2017-01-07] MEDS: ASPIRIN 81 MG CHEW TAB PO SCH (10:12)
[2017-01-07] MEDS: ATORVASTATIN 40 MG TAB NG SCH (10:19)
[2017-01-07 10:20] LABS: BLOOD GAS CARBOXYHEMOGLOBIN 1.2 % (0-4); BLOOD GAS HCO3 16 mmol/L (22-26); BLOOD GAS METHEMOGLOBIN 1.1 % (0-2); BLOOD GAS O2 HGB SATURATION 93 % (90-100); BLOOD GAS OXYGEN CONTENT 18.4 Vol % (12.0-20.0); BLOOD GAS PCO2 30 mmHg (38-42); BLOOD GAS PO2 76 mmHg (61-120); BLOOD GAS TOTAL HGB 14.1 G/DL (12.0-16.0); TEMP CORR TO 98.6
[2017-01-07 10:21] LABS: DRAW SITE ART LINE; FIO2 40 %; OXYGEN DEVICE VENTILATOR; STAT NO; ULNAR PULSE PRESENT; VENT SETTINGS 600/AC24/PEEP5
[2017-01-07 10:28] LABS: HEMATOCRIT 42.4 % (39.0-51.0); MEAN CELL VOLUME 91.9 FL (80.0-100.0); MEAN CORPUSCULAR HEMOGLOBIN 30.8 PG (27.0-34.0); MEAN CORPUSCULAR HGB CONC 33.5 % (32.0-36.0); PLATELET COUNT 151 TH/MM3 (150-450); RED BLOOD COUNT 4.62 MIL/MM3 (4.50-5.90); RED CELL DISTRIBUTION WIDTH 13.3 % (11.6-17.2); REVIEW FLAG FINAL; WHITE BLOOD COUNT 13.1 TH/MM3 (4.0-11.0)
[2017-01-07 10:46] LABS: APTT (PATIENT) 29.6 SEC (24.3-30.1); INTERNATIONAL NORMALIZED RATIO 1.3 RATIO; PROTHROMBIN TIME - PATIENT 14.2 SEC (9.8-11.6)
--- NOTE | 2017-01-07 11:27 | MB ---
cc: FRANCY ESPITIA MD DATE OF CONSULTATION 01/07/2017 REASON FOR CONSULTATION Cardiac arrest HISTORY OF PRESENT ILLNESS Mr. Zapata is a 76-year-old patient of mine. He does have a known history of an ischemic cardiomyopathy with a recent nuclear stress test in February of 2016 that showed a large fixed inferior defect and an EF of 35%. He has an ischemic cardiomyopathy, atrial fibrillation and hypertension and CHF. The patient is not responsive now and the HPI is per the records: The patient was apparently in an argument with family members when he clutched his chest and went down. EMS found him in VF and shocked him 11 times. He had CPR for 35 minutes. He subsequently was seen in the emergency room and a cool protocol was started. ALLERGIES NO KNOWN DRUG ALLERGIES. OUTPATIENT MEDICATIONS As per the record. They are known to also include: 1. Levothyroxine 2. Xarelto 3. Lisinopril CURRENT MEDICATIONS Per the record. PAST MEDICAL HISTORY Known to include: 1. Aortic sclerosis 2. Atrial fibrillation with a CHADS-VASc score of 4 (two points for age over 75, hypertension and CHF) 3. Obstructive sleep apnea 4. Myocardial infarction with an ischemic cardiomyopathy. His EF was 30% by echo in January and 35% by nuclear in February. 5. He also has a history of hypertension, hyperlipidemia, left bundle branch block, morbid obesity, hypothyroidism and bilateral TKR. SOCIAL HISTORY The patient is . REVIEW OF SYSTEMS Not obtainable FAMILY HISTORY Not obtainable PHYSICAL EXAM VITAL SIGNS: 91.4, 64, 18, 93/54. GENERAL: He is a morbidly obese man who is in no apparent distress on the ventilator. NECK: His neck is difficult to assess. LUNGS: The lungs have a bit decreased, but clear to auscultation. CARDIOVASCULAR: On examination, he has normal S1 and S2. There was a 2/6 systolic murmur. No rubs or gallops are appreciated. ABDOMEN: The abdomen is soft. EXTREMITIES: The extremities are essentially free of any edema. LAB VALUES Significant for an initial troponin of 0.17. His creatinine this morning is 2.27 with a potassium of 3.1. HEAD CT Negative for any acute intracranial abnormality. EKG shows left bundle branch block. IMPRESSION Status post cardiac arrest - The patient certainly does have a history of the same. He at this point is nonresponsive and hypotensive. He is on the ventilator and pressors under the cooling protocol. At this time, he remains a poor analytical laboratory technician candidate secondary to his comorbid conditions. The cooling protocol will be for will likely be for 24 hours. If he wakes up and is appropriate, we will certainly consider going to the analytical laboratory technician then. He still will be at very high risk secondary to his renal insufficiency and comorbid conditions. Additionally, he has been on Xarelto in an with his renal insufficiency it will take several days to wear off. His blood pressure is too low for a beta-thais. Heparin is felt relatively contraindicated with the Xarelto thus I will hold off on this right now. The patient will be continued on a statin. His blood pressure is also to low for any orville inhibitor. Francy Espitia M.D. MAIKOL/PETRONA /7:49 AM /11:14 AM
[2017-01-07] MEDS: HEPARIN-D5W INJ 250 ML IV SCH (12:23)
[2017-01-07] MEDS: BUMETANIDE INJ 100 ML IV SCH (13:11)
[2017-01-07] MEDS: MIDAZOLAM 100 MG/ML INJ 100 ML IV SCH (15:00)
--- NOTE | 2017-01-07 15:24 | EC ---
Study Study Date:01/07/2017 STUDY CONCLUSIONS SUMMARY - Left ventricle: The cavity size was normal. Wall thickness was normal. Systolic function was moderately to severely reduced by visual assessment. The estimated ejection fraction was in the range of 25% to 30%. Mild diffuse hypokinesis. - Mitral valve: Mild regurgitation. - Tricuspid valve: Mild regurgitation. - Pulmonary arteries: PA peak pressure: 37mm Hg (S). - Pericardium, extracardiac: A small to moderate pericardial effusion was identified circumferential to the heart. There was no evidence of hemodynamic compromise. If LV function is below 40, please consider prescribing an ACEI or ARB or document rationale for non-use. PROCEDURE DATA STUDY STATUS: Elective. Procedure: Transthoracic echocardiography. Image quality was suboptimal. The study was technically limited due to poor acoustic window availability. Scanning was performed from the parasternal, apical, and subcostal acoustic windows. Study completion: The patient tolerated the procedure well. Transthoracic echocardiography. M-mode, complete 2D, complete spectral Doppler, and color Doppler. Patient status: Inpatient. CARDIAC ANATOMY LEFT VENTRICLE: The cavity size was normal. Wall thickness was normal. Systolic function was moderately to severely reduced by visual assessment. The estimated ejection fraction was in the range of 25% to 30%. Mild diffuse hypokinesis. AORTIC VALVE: Probably trileaflet; mildly thickened, mildly calcified leaflets. Doppler: Transvalvular velocity was within the normal range. There was no stenosis. No regurgitation. AORTA: Aortic root: The aortic root was poorly visualized and mildly dilated. MITRAL VALVE: Structurally normal valve. Doppler: Transvalvular velocity was within the normal range. There was no evidence for stenosis. Mild regurgitation. LEFT ATRIUM: The atrium was normal in size. RIGHT VENTRICLE: The cavity size was normal. Wall thickness was normal. PULMONIC VALVE: Doppler: Transvalvular velocity was within the normal range. There was no evidence for stenosis. No regurgitation. TRICUSPID VALVE: Structurally normal valve. Doppler: Transvalvular velocity was within the normal range. Mild regurgitation. PULMONARY ARTERY: The main pulmonary artery was normal-sized. Systolic pressure was within the normal range. RIGHT ATRIUM: The atrium was normal in size. PERICARDIUM: A small to moderate pericardial effusion was identified circumferential to the heart. There was no evidence of hemodynamic compromise. SYSTEMIC VEINS: Inferior vena cava: The vessel was normal in size. BASIC MEASUREMENTS ADULT Normal Left ventricle LV internal dimension, ED, chordal level, *54.2 mm 43-52 PLAX LV internal dimension, ES, chordal level, *48 mm 23-38 PLAX Fractional shortening, chordal level, PLAX *11 % >29 LV posterior wall thickness, ED 14.3 mm IVS/LVPW ratio, ED *1.43 <1.3 Ventricular septum Septal thickness, ED 20.5 mm Aortic valve Leaflet separation *14 mm 15-26 Right ventricle RV internal dimension, ED, PLAX 26.7 mm 19-38 BASIC MEASUREMENTS ADULT Normal Aortic valve Leaflet separation *14 mm 15-26 Aorta Root diameter, ED *39 mm 20-37 Left atrium Anterior-posterior dimension, ES 36 mm 19-40 LA/aortic root ratio 0.92 DOPPLER MEASUREMENTS ADULT Normal Main pulmonary artery Pressure, S *37 mm Hg =30 Tricuspid valve Regurgitant peak velocity 262 cm/s Peak RV-RA gradient, S 27 mm Hg Maximal regurgitant velocity 262 cm/s Systemic veins Estimated CVP 10 mm Hg Right ventricle RV pressure, S *37 mm Hg <30 LEGEND: Mean values are shown as u=mean value. Asterisk (*) gipson values outside specified normal range. Prepared and signed by Eligio Dickson [id number]
--- NOTE | 2017-01-07 16:35 | EKG ---
Date Performed: 01/06/2017 Time Performed: 16:37:40 PTAGE: 89 years EKG: UNCERTAIN REGULAR RHYTHM LEFT BUNDLE BRANCH BLOCK MARKED ST DEPRESSION, CONSIDER SUBENDOCA RDIAL INJURY ABNORMAL ECG INTERPRETATION BASED ON A DEFAULT AGE OF 38 YEARS NO PREVIOUS TRACING DOCTOR: Kumar Cortez Interpretating Date/Time 01/07/2017 16:33:14
[2017-01-07] MEDS: SENNOSIDES 8.6 MG TAB PO SCH (17:45)
[2017-01-07 18:15] LABS: BLOOD GAS BASE EXCESS -11.8 mmol/L (-2-2); BLOOD GAS CARBOXYHEMOGLOBIN 1.2 % (0-4); BLOOD GAS HCO3 13 mmol/L (22-26); BLOOD GAS METHEMOGLOBIN 1.2 % (0-2); BLOOD GAS O2 HGB SATURATION 91 % (90-100); BLOOD GAS OXYGEN CONTENT 18.1 Vol % (12.0-20.0); BLOOD GAS PCO2 25 mmHg (38-42); BLOOD GAS PO2 69 mmHg (61-120); BLOOD GAS TOTAL HGB 14.2 G/DL (12.0-16.0); TEMP CORR TO 98.6
[2017-01-07 18:16] LABS: CRITICAL VALUE YES; FIO2 40 %; OXYGEN DEVICE VENTILATOR; VENT SETTINGS 600/AC24/PEEP5
[2017-01-07 18:17] LABS: DRAW SITE ART LINE; STAT NO; ULNAR PULSE PRESENT
[2017-01-07 18:40] LABS: HEMATOCRIT 39.9 % (39.0-51.0); MEAN CELL VOLUME 92.6 FL (80.0-100.0); MEAN CORPUSCULAR HEMOGLOBIN 31.1 PG (27.0-34.0); MEAN CORPUSCULAR HGB CONC 33.5 % (32.0-36.0); PLATELET COUNT 129 TH/MM3 (150-450); RED BLOOD COUNT 4.31 MIL/MM3 (4.50-5.90); RED CELL DISTRIBUTION WIDTH 13.4 % (11.6-17.2); REVIEW FLAG FINAL; WHITE BLOOD COUNT 12.1 TH/MM3 (4.0-11.0)
[2017-01-07 19:09] LABS: BICARBONATE 14.9 MEQ/L (21.0-32.0); MAGNESIUM 1.9 MG/DL (1.5-2.5)
[2017-01-07 19:15] LABS: POTASSIUM 2.7 MEQ/L (3.5-5.1)
[2017-01-07 20:12] LABS: APTT (PATIENT) GREATER THAN 153.4 SEC (24.3-30.1)
[2017-01-07] MEDS ORDERED: POTASSIUM CHLOR 20 MEQ PREMIX 100 ML IV PRN ×2 (20:15)
[2017-01-07] MEDS ORDERED: MAGNESIUM OXIDE 400 MG TAB PO PRN (20:15)
[2017-01-07] MEDS ORDERED: POTASSIUM PHOSPHATE MONOBASIC 500 MG TAB PO/TUBE PRN (20:15)
[2017-01-07] MEDS ORDERED: SODIUM PHOSPHATE INJ 30 MMOL in SODIUM CHLOR 0.9% 250 ML INJ 240 ML IV PRN (20:15)
[2017-01-07] MEDS ORDERED: POTASSIUM PHOSPHATE INJ 30 MMOL in SODIUM CHLOR 0.9% 250 ML INJ 250 ML IV PRN (20:15)
[2017-01-07] MEDS ORDERED: MAGNESIUM SULFATE INJ 2 GM in SODIUM CHLORIDE 0.9% INJ 96 ML IV PRN (20:15)
[2017-01-07] MEDS ORDERED: POTASSIUM CL 40 MEQ/30 ML LIQ UDC PO/TUBE PRN ×2 (20:15)
[2017-01-07] MEDS ORDERED: MAGNESIUM SULFATE INJ 4 GM in SODIUM CHLORIDE 0.9% INJ 92 ML IV PRN (20:15)
[2017-01-07] MEDS ORDERED: POTASSIUM PHOSPHATE MONOBASIC 500 MG TAB PO PRN (20:15)
[2017-01-07] MEDS ORDERED: POTASSIUM CHLOR 40 MEQ PREMIX 100 ML IV PRN ×2 (20:15)
[2017-01-07] MEDS ORDERED: HEPARIN SODIUM - SQ 10,000 UNITS/ML VIAL SQ SCH (21:00)
[2017-01-07 23:26] LABS: APTT (PATIENT) GREATER THAN 153.4 SEC (24.3-30.1)
[2017-01-08] VITALS (16 sets, daily range): BP systolic 93–124; BP diastolic 47–69; PULSE 72–134; RESP 24; TEMP 91.4–100; O2SAT 92–96
[2017-01-08] MEDS: INSULIN NovoLIN REGULAR SUPPLEMENTAL SCALE SQ SCH ×2 (00:25→04:33)
[2017-01-08] MEDS: ARTIFICIAL TEARS OPTH OINT 3.5 APPLIC/3.5 GM TUBO EACH EYE SCH ×4 (00:25→12:13)
[2017-01-08] MEDS: metroNIDAZOLE 500 MG INJ 100 ML IV SCH ×3 (00:28→16:03)
[2017-01-08 00:34] LABS: BICARBONATE 15.9 MEQ/L (21.0-32.0)
[2017-01-08] MEDS: VECURONIUM BROMIDE 10 MG VIAL IV PRN ×4 (00:36→06:52)
[2017-01-08 00:41] LABS: POTASSIUM 2.4 MEQ/L (3.5-5.1)
[2017-01-08 01:39] LABS: APTT (PATIENT) GREATER THAN 153.4 SEC (24.3-30.1)
[2017-01-08 02:58] LABS: APTT (PATIENT) 93.8 SEC (24.3-30.1)
[2017-01-08] MEDS: RESP: ALBUTEROL 2.5 MG/IPRATROPIUM 0.5 MG NEB (SCH) INH ×4 (03:51→20:18)
[2017-01-08] MEDS: CHLORHEXIDINE GLUCONATE 2 % 1 PACK (2 CLOTHS) TOP SCH (04:00)
[2017-01-08 04:22] LABS: AUTOMATED NEUTROPHIL # 7.1 TH/MM3 (1.8-7.7); BASOPHIL % 0.1 % (0.0-2.0); HEMATOCRIT 39.2 % (39.0-51.0); HEMO FLAGS DIFF FINAL; LYMPH % 19.9 % (9.0-44.0); LYMPHOCYTE # 2.1 TH/MM3 (1.0-4.8); MEAN CELL VOLUME 91.7 FL (80.0-100.0); MEAN CORPUSCULAR HEMOGLOBIN 30.9 PG (27.0-34.0); MEAN CORPUSCULAR HGB CONC 33.7 % (32.0-36.0); MONO % 11.3 % (0.0-8.0); NEUT % 68.7 % (16.0-70.0); PLATELET COUNT 133 TH/MM3 (150-450); RED BLOOD COUNT 4.28 MIL/MM3 (4.50-5.90); RED CELL DISTRIBUTION WIDTH 13.1 % (11.6-17.2); WHITE BLOOD COUNT 10.4 TH/MM3 (4.0-11.0)
[2017-01-08 04:28] LABS: APTT (PATIENT) 61.1 SEC (24.3-30.1); INTERNATIONAL NORMALIZED RATIO 1.3 RATIO; PROTHROMBIN TIME - PATIENT 14.3 SEC (9.8-11.6)
[2017-01-08 04:50] LABS: ALKALINE PHOSPHATASE 62 U/L (45-117); ALT (GPT) 54 U/L (12-78); ANION GAP 19 MEQ/L (5-15); AST (GOT) 133 U/L (15-37); BICARBONATE 18.4 MEQ/L (21.0-32.0); BLOOD UREA NITROGEN 43 MG/DL (7-18); CHLORIDE 108 MEQ/L (98-107); GLOMERULAR FILTRATION RATE 19 ML/MIN (>89); MAGNESIUM 1.7 MG/DL (1.5-2.5); SODIUM (NA) 145 MEQ/L (136-145); TOTAL BILIRUBIN ADULT 0.5 MG/DL (0.2-1.0)
[2017-01-08 05:03] LABS: POTASSIUM 2.4 MEQ/L (3.5-5.1)
--- NOTE | 2017-01-08 05:49 | RADRPT ---
EXAM DATE/TIME: 01/08/2017 04:43 [facility] COMPARISON: CHEST SINGLE AP, January 07, 2017, 4:46. INDICATIONS : Respiratory failure. MEDICAL HISTORY : None. SURGICAL HISTORY : None. ENCOUNTER: Subsequent ACUITY: 2 days PAIN SCORE: Non-responsive. LOCATION: Bilateral chest FINDINGS: ET tube and NG tube will place. The heart size is normal. There is widening of the aorta. There is mi ld increased density at the right base. The left lung is grossly clear. CONCLUSION: Mild right base consolidation or atelectasis. Edvin Miller MD on January 08, 2017 at 5:47 Board Certified Radiologist. This report was verified electronically.
[2017-01-08] MEDS: NOREPINEPHRINE INJ 4 MG in SODIUM CHLOR 0.9% 250 ML INJ 250 ML IV SCH ×4 (05:50→23:57)
[2017-01-08] MEDS: BUMETANIDE INJ 100 ML IV SCH (05:50)
[2017-01-08] MEDS: LEVOTHYROXINE SODIUM 25 MCG TAB PO SCH (05:52)
[2017-01-08] MEDS: SENNOSIDES 8.6 MG TAB PO SCH ×2 (05:52→17:25)
[2017-01-08 05:56] LABS: BLOOD GAS BASE EXCESS -6.8 mmol/L (-2-2); BLOOD GAS CARBOXYHEMOGLOBIN 1.4 % (0-4); BLOOD GAS HCO3 17 mmol/L (22-26); BLOOD GAS METHEMOGLOBIN 1.1 % (0-2); BLOOD GAS O2 HGB SATURATION 91 % (90-100); BLOOD GAS OXYGEN CONTENT 17.2 Vol % (12.0-20.0); BLOOD GAS PCO2 25 mmHg (38-42); BLOOD GAS PO2 65 mmHg (61-120); BLOOD GAS TOTAL HGB 13.5 G/DL (12.0-16.0); TEMP CORR TO 98.6
[2017-01-08 05:57] LABS: CRITICAL VALUE NO; DRAW SITE ART LINE; FIO2 40 %; OXYGEN DEVICE VENTILATOR; STAT NO; VENT SETTINGS AC/24/600/PEEP5
[2017-01-08] MEDS ORDERED: POTASSIUM PHOSPHATE INJ 30 MMOL in SODIUM CHLOR 0.9% 250 ML INJ 250 ML IV ONE (06:30)
[2017-01-08] MEDS ORDERED: DEXTROSE 50% IN WATER 50 ML VIAL(D50) IV PUSH PRN ×2 (06:30→20:45)
[2017-01-08] MEDS ORDERED: MISC INFORMATION XX ONE (06:30)
[2017-01-08] MEDS ORDERED: POTASSIUM CHLORIDE INJ 30 MEQ in SODIUM CHLORIDE 0.9% INJ 100 ML IV-CENTRAL ONE (06:30)
[2017-01-08] MEDS: SODIUM BICARBONATE 8.4% INJ 100 MEQ in WATER STERILE FOR INJ 1,000 ML IV SCH ×2 (06:43→20:24)
--- NOTE | 2017-01-08 06:46 | PD.CARD.PN ---
Subjective Subjective Remarks Sedated on vent Objective Medications Current Medications Medications (Trade) Dose Ordered Sig/Fareed Route Start Time Stop Time Status Last Admin (Tylenol) 650 mg Q6H PRN PO 01/06/17 17:45 (Protonix Inj) 40 mg DAILY IV 01/07/17 09:00 01/07/17 10:11 (Tears Naturale Opth Soln) 1 drop TID EACH EYE 01/06/17 18:00 01/07/17 17:45 (Zofran Inj) 4 mg Q6H PRN IV 01/06/17 17:45 (Colace) 100 mg BID PO 01/06/17 21:00 01/07/17 21:00 Miscellaneous Information 1 Q361D XX 01/06/17 17:45 (Chlorhexidine 2% Cloth) 3 pack Taper DAILY@04 TOP 01/07/17 04:00 01/03/18 03:59 Chlorhexidine Gluconate 3 pack 3 pack UNSCH PRN TOP 01/06/17 17:45 (Diprivan 1000 Mg/100ml Inj) 100 ml @ 0 mls/hr TITRATE IV 01/06/17 17:45 (Peridex 0.12% Liq) 15 ml BID@08,20 MT 01/06/17 20:00 01/07/17 20:59 Levothyroxine Sodium 25 mcg 25 mcg DAILY@06 PO 01/07/17 06:00 01/08/17 05:52 (Maxipime Inj/NS Inj) 100 ml @ 200 mls/hr Q12H IV 01/06/17 20:00 01/07/17 21:00 Lorazepam 1 mg 1 mg Q1H PRN IV 01/06/17 20:00 Midazolam HCl 100 ml @ 0 mls/hr TITRATE IV 01/06/17 20:00 01/07/17 15:00 (fentaNYL DRIP) 250 ml @ 0 mls/hr TITRATE IV 01/06/17 20:00 01/07/17 21:00 (Norcuron 10 Mg Inj) 5 mg Q1H PRN IV 01/06/17 20:00 01/08/17 05:51 (Lacrilube Opht Oint) 1 applic Q4H EACH EYE 01/06/17 20:00 01/08/17 04:34 (NS Flush) 2 ml BID IVF 01/06/17 21:00 01/07/17 21:00 IV Flush 2 ml 2 ml UNSCH PRN IVF 01/06/17 20:00 01/07/17 05:52 Miscellaneous Information 0 ml @ 0 mls/hr UNSCH IV 01/06/17 20:00 (Levophed Inj/NS 250 ml Inj) 254 ml @ 0 mls/hr TITRATE IV 01/06/17 21:00 01/08/17 05:50 (Aspirin Chew) 81 mg DAILY PO 01/07/17 09:00 01/07/17 10:12 Atorvastatin Calcium 40 mg 40 mg DAILY NG 01/07/17 09:00 01/07/17 10:19 (Flagyl 500 Mg Inj) 100 ml @ 100 mls/hr Q8H IV 01/07/17 09:00 01/08/17 00:28 (Senokot) 17.2 mg Q12H PO 01/07/17 18:00 01/08/17 05:52 (Miralax) 17 gm DAILY PO 01/07/17 09:00 01/07/17 10:12 Lactulose 30 ml 30 ml DAILY PO 01/07/17 09:00 01/07/17 10:12 Vasopressin 40 units/Dextrose 100 ml @ 1.5 mls/hr Q24H IV 01/07/17 08:22 01/07/17 09:21 (Adrenalin (1:1000) Inj/D5W Inj) 250 ml @ 0 mls/hr TITRATE IV 01/07/17 10:30 01/07/17 23:58 Insulin Human Regular 1 1 Q4HR SQ 01/07/17 12:00 01/08/17 04:33 Heparin Sodium/ Dextrose 250 ml @ 0 mls/hr TITRATE IV 01/07/17 09:45 01/07/17 12:23 Bumetanide 100 ml @ 4 mls/hr CONTINUOUS IV 01/07/17 14:45 01/08/17 05:50 Sodium Bicarbonate 100 meq/Sterile Water 1,100 ml @ 75 mls/hr [id number] IV 01/08/17 05:45 Potassium Phosphate 30 mmol/ Sodium Chloride 260 ml @ 43.333 mls/ hr ONCE ONCE IV 01/08/17 06:30 01/08/17 12:29 UNV (NovoLIN R (IV INFUSION)/NS Inj) 100 ml @ 0 mls/hr TITRATE IV 01/08/17 06:30 UNV (D50w (Vial) Inj) 25 ml UNSCH PRN IV PUSH 01/08/17 06:30 UNV Miscellaneous Information 1 1 ONCE ONCE XX 01/08/17 06:30 01/08/17 06:31 UNV Potassium Chloride 30 meq/ Sodium Chloride 115 ml @ 38.333 mls/ hr ONCE ONCE IV-CENTRAL 01/08/17 06:30 01/08/17 09:29 UNV (Magnesium Sulfate 1 Gm Premix) 100 ml @ 100 mls/hr Q1H IV 01/08/17 06:45 01/08/17 08:44 UNV Vital Signs / I&O Vital Signs Date Time Temp Pulse Resp B/P Pulse Ox O2 Delivery O2 Flow Rate FiO2 01/08/17 04:10 94 40 01/08/17 01:02 93 40 01/08/17 00:00 40 01/08/17 00:00 91.4 72 24 95/52 92 93/49 01/07/17 23:00 78 01/07/17 22:03 93 40 01/07/17 20:00 40 01/07/17 20:00 91.4 65 24 99/55 93 108/50 01/07/17 19:10 93 40 01/07/17 17:09 97 40 01/07/17 16:00 91.4 63 25 94/51 95 112/52 01/07/17 16:00 40 01/07/17 15:00 60 01/07/17 13:45 96 40 01/07/17 12:00 40 01/07/17 12:00 91.4 63 25 110/53 94 115/56 01/07/17 10:26 96 40 01/07/17 08:38 98 40 01/07/17 08:00 40 01/07/17 08:00 91.6 61 18 89/56 99 90/54 01/07/17 07:00 61 I/O 01/07/17 01/07/17 01/07/17 01/08/17 01/08/17 01/08/17 07:00 15:00 23:00 07:00 15:00 23:00 Intake Total 6316 ml 2876 ml 1526 ml 1768 ml Output Total 82 ml 237.0 ml 905.0 ml 540 ml Balance 6234 ml 2639.0 ml 621.0 ml 1228 ml Intake Oral 0 ml 0 ml IV Total 6266 ml 2786 ml 1434 ml 1595 ml Tube Feeding 32 ml 113 ml Tube Irrigant 60 ml 60 ml Other 50 ml 90 ml Output Urine Total 82 ml 37 ml 555 ml 540 ml Tube Feeding Residual Discard 200.0 ml 350.0 ml # Bowel Movements 0 0 Physical Exam GENERAL: Well developed, well nourished. No acute distress. HEENT: Jugular venous pressure is normal. CHEST: Lungs clear to auscultation bilaterally. Unlabored respiratory effort. CARDIAC: Regular rate and rhythm without S3, S4, or murmur. ABDOMEN: Soft, nontender, no hepatosplenomegaly. Bowel sounds present. EXTREMITIES: No clubbing, cyanosis, or edema. Laboratory Laboratory Tests Test 01/07/17 01/07/17 01/07/17 01/07/17 08:14 09:55 10:25 12:05 Troponin I GREATER THAN 40.00 NG/ML White Blood Count 13.1 TH/MM3 Red Blood Count 4.62 MIL/MM3 Hemoglobin 14.2 GM/DL Hematocrit 42.4 % Mean Corpuscular Volume 91.9 FL Mean Corpuscular Hemoglobin 30.8 PG Mean Corpuscular Hemoglobin 33.5 % Concent Red Cell Distribution Width 13.3 % Platelet Count 151 TH/MM3 Mean Platelet Volume 9.7 FL Prothrombin Time 14.2 SEC Prothromb Time International 1.3 RATIO Ratio Activated Partial 29.6 SEC Thromboplast Time 25-Hydroxy Vitamin D Total 26.8 ng/ML Blood Gas Puncture Site ART LINE Blood Gas Patient Temperature 98.6 Blood Gas HCO3 16 mmol/L Blood Gas Base Excess -9.0 mmol/L Blood Gas Oxygen Saturation 93 % Arterial Blood pH 7.34 Arterial Blood Partial 30 mmHg Pressure CO2 Arterial Blood Partial 76 mmHg Pressure O2 Arterial Blood Oxygen Content 18.4 Vol % Arterial Blood 1.2 % Carboxyhemoglobin Arterial Blood Methemoglobin 1.1 % Blood Gas Hemoglobin 14.1 G/DL Oxygen Delivery Device VENTILATOR Blood Gas Ventilator Setting 600/AC24/PEEP5 Blood Gas Inspired Oxygen 40 % Lactic Acid Level 10.7 mmol/L Test 01/07/17 01/07/17 01/07/17 01/07/17 18:08 18:11 22:18 23:51 Blood Gas Puncture Site ART LINE Blood Gas Patient Temperature 98.6 Blood Gas HCO3 13 mmol/L Blood Gas Base Excess -11.8 mmol/L Blood Gas Oxygen Saturation 91 % Arterial Blood pH 7.33 Arterial Blood Partial 25 mmHg Pressure CO2 Arterial Blood Partial 69 mmHg Pressure O2 Arterial Blood Oxygen Content 18.1 Vol % Arterial Blood 1.2 % Carboxyhemoglobin Arterial Blood Methemoglobin 1.2 % Blood Gas Hemoglobin 14.2 G/DL Oxygen Delivery Device VENTILATOR Blood Gas Ventilator Setting 600/AC24/PEEP5 Blood Gas Inspired Oxygen 40 % White Blood Count 12.1 TH/MM3 Red Blood Count 4.31 MIL/MM3 Hemoglobin 13.4 GM/DL Hematocrit 39.9 % Mean Corpuscular Volume 92.6 FL Mean Corpuscular Hemoglobin 31.1 PG Mean Corpuscular Hemoglobin 33.5 % Concent Red Cell Distribution Width 13.4 % Platelet Count 129 TH/MM3 Mean Platelet Volume 10.2 FL Activated Partial GREATER THAN GREATER THAN Thromboplast Time 153.4 SEC 153.4 SEC Sodium Level 148 MEQ/L 147 MEQ/L Potassium Level 2.7 MEQ/L 2.4 MEQ/L Chloride Level 112 MEQ/L 111 MEQ/L Carbon Dioxide Level 14.9 MEQ/L 15.9 MEQ/L Anion Gap 21 MEQ/L 20 MEQ/L Blood Urea Nitrogen 41 MG/DL 43 MG/DL Creatinine 2.86 MG/DL 3.01 MG/DL Estimat Glomerular Filtration 21 ML/MIN 20 ML/MIN Rate Random Glucose 411 MG/DL 454 MG/DL Lactic Acid Level 12.1 mmol/L 10.7 mmol/L Calcium Level 9.4 MG/DL 9.3 MG/DL Phosphorus Level 1.7 MG/DL 1.7 MG/DL Magnesium Level 1.9 MG/DL Troponin I 31.60 NG/ML Test 01/08/17 01/08/17 01/08/17 01/08/17 00:20 02:20 04:03 05:44 Activated Partial GREATER THAN 93.8 SEC 61.1 SEC Thromboplast Time 153.4 SEC White Blood Count 10.4 TH/MM3 Red Blood Count 4.28 MIL/MM3 Hemoglobin 13.2 GM/DL Hematocrit 39.2 % Mean Corpuscular Volume 91.7 FL Mean Corpuscular Hemoglobin 30.9 PG Mean Corpuscular Hemoglobin 33.7 % Concent Red Cell Distribution Width 13.1 % Platelet Count 133 TH/MM3 Mean Platelet Volume 9.9 FL Neutrophils (%) (Auto) 68.7 % Lymphocytes (%) (Auto) 19.9 % Monocytes (%) (Auto) 11.3 % Eosinophils (%) (Auto) 0.0 % Basophils (%) (Auto) 0.1 % Neutrophils # (Auto) 7.1 TH/MM3 Lymphocytes # (Auto) 2.1 TH/MM3 Monocytes # (Auto) 1.2 TH/MM3 Eosinophils # (Auto) 0.0 TH/MM3 Basophils # (Auto) 0.0 TH/MM3 CBC Comment DIFF FINAL Differential Comment Prothrombin Time 14.3 SEC Prothromb Time International 1.3 RATIO Ratio Sodium Level 145 MEQ/L Potassium Level 2.4 MEQ/L Chloride Level 108 MEQ/L Carbon Dioxide Level 18.4 MEQ/L Anion Gap 19 MEQ/L Blood Urea Nitrogen 43 MG/DL Creatinine 3.19 MG/DL Estimat Glomerular Filtration 19 ML/MIN Rate Random Glucose 470 MG/DL Lactic Acid Level 8.3 mmol/L Calcium Level 9.0 MG/DL Phosphorus Level 1.0 MG/DL Magnesium Level 1.7 MG/DL Total Bilirubin 0.5 MG/DL Aspartate Amino Transf 133 U/L (AST/SGOT) Alanine Aminotransferase 54 U/L (ALT/SGPT) Alkaline Phosphatase 62 U/L Total Protein 4.9 GM/DL Albumin 2.0 GM/DL Blood Gas Puncture Site ART LINE Blood Gas Patient Temperature 98.6 Blood Gas HCO3 17 mmol/L Blood Gas Base Excess -6.8 mmol/L Blood Gas Oxygen Saturation 91 % Arterial Blood pH 7.44 Arterial Blood Partial 25 mmHg Pressure CO2 Arterial Blood Partial 65 mmHg Pressure O2 Arterial Blood Oxygen Content 17.2 Vol % Arterial Blood 1.4 % Carboxyhemoglobin Arterial Blood Methemoglobin 1.1 % Blood Gas Hemoglobin 13.5 G/DL Oxygen Delivery Device VENTILATOR Blood Gas Ventilator Setting AC/24/600/PEEP5 Blood Gas Inspired Oxygen 40 % Assessment and Plan Problem List: (1) Hypokalemia Assessment and Plan: K=2.4, per [facility] (2) Cardiogenic shock Assessment and Plan: Pressor up over night (3) Acute respiratory failure Assessment and Plan: on vent per [facility] (4) Cardiac arrest Assessment and Plan: s/p 30 min CPR, 11 defibs still on cool protocol, re-warming currently (5) Coronary artery disease Assessment and Plan: medical management until neuro status is clarified (6) Dilated cardiomyopathy Assessment and Plan: EF 25-30% by ECHO BP too low for BB or AMEYA (7) V tach (8) Atrial fibrillation Problem Qualifiers (1) Coronary artery disease: Ami Richmond MD Jan 08, 2017 06:45
--- NOTE | 2017-01-08 06:54 | EKG ---
Date Performed: 01/07/2017 Time Performed: 09:17:51 PTAGE: 76 years EKG: Sinus rhythm WITH FIRST DEGREE AV BLOCK WITH OCCASIONAL VENTRICULAR PREMATURE COMPLEXES WITH OCCASIONAL SUPRAVENT RICULAR PREMATURE COMPLEXES MARKED LEFT AXIS DEVIATION LEFT BUNDLE BRANCH BLOCK Prolongation of QT in terval ABNORMAL ECG Compared to the PREVIOUS TRACING , patient now in normal sinus rhythm PREVIOUS TRACIN12/14/2015 05.43 DOCTOR: Kumar Cortez Interpretating Date/Time 01/08/2017 06:54:24
[2017-01-08] MEDS: fentaNYL DRIP 250 ML IV SCH (07:58)
[2017-01-08] MEDS: EPINEPHrine (1:1000) INJ 2 MG in DEXTROSE 5% IN WATER INJ 248 ML IV SCH ×2 (07:59)
[2017-01-08] MEDS: MIDAZOLAM 100 MG/ML INJ 100 ML IV SCH (08:00)
[2017-01-08] MEDS: INSULIN REGULAR (IV INFUSION) 100 UNITS in SODIUM CHLORIDE 0.9% INJ 99 ML IV SCH ×2 (09:11→12:31)
--- NOTE | 2017-01-08 09:14 | MB ---
cc: TRE GARCIA MD DATE OF CONSULTATION 01/07/17 REASON FOR CONSULTATION Elevated BUN and creatinine for evaluation. HISTORY OF PRESENT ILLNESS This is a 76-year-old male with past medical history of ischemic heart disease, left bundle-branch block, history of dilated cardiomyopathy with ejection fraction of 37%, hypertension, irritable bowel syndrome, hyperlipidemia, obstructive sleep apnea, chronic low back pain, hypothyroidism who was admitted with cardiac arrest. I was called to see the patient because of elevated BUN and creatinine. The patient has BUN of 21 and creatinine of 1.9 on admission. There is no known history of chronic kidney disease. The creatinine has gone up to 2.2. The patient was admitted with cardiac arrest he had CPR done and total call was 55 minutes and the patient now is having hypotension and having severe metabolic acidosis. The patient has been on multiple pressors and started on Bumex infusion. Urine output is not very good and has dropped slightly since the initial drainage of 350 mL. The patient is not able to give any history. The history was taken from the patient's chart. The patient was seen by cardiology and echocardiogram was also done. PAST MEDICAL HISTORY 1. Ischemic heart disease, 2. Dilated cardiomyopathy, 3. Hypothyroidism, 4. Hyperlipidemia 5. Obstructive sleep apnea, 6. Irritable bowel syndrome. PAST SURGICAL HISTORY 1. Bilateral total knee replacement 2. Lipoma removed from the back REVIEW OF SYSTEMS Cannot be taken since the patient is intubated. SOCIAL HISTORY The patient has past history of smoking for 45 years. There is no documented history of alcoholism. FAMILY HISTORY Noncontributory. ALLERGIES There is no known drug allergies. CURRENT MEDICATIONS The patient is on 1. IV fluid with sodium bicarbonate. 2. Colace 100 mg b.i.d. 3. Bumex infusion. 4. Protonix 40 mg IV daily. 5. Aspirin 81 mg once a day 6. Lipitor 40 mg once a day. 7. MiraLax 17 grams daily, 8. Lactulose 30 mL once a day. 9. Synthroid 35 mcg once a day. 10. DuoNeb nebulizer q. 6-hour 11. Cefepime 1 gram q. 12-hour. 12. Senokot 17.2 mg q. 12-hour 13. Regular insulin sliding scale. 14. Metronidazole 500 mg IV q.8 h 15. Norepinephrine. 16. Vasopressin PHYSICAL EXAMINATION GENERAL: The patient is intubated and sedated. VITAL SIGNS: Last blood pressure was recorded as 94/51 temperature is 91.4. HEENT: Pupils are mid constricted. Nonicteric sclerae, conjunctivae normal. NECK: Supple. JVD is not elevated. LUNGS: The patient has bilateral decreased air entry with basilar rales and scattered wheezing. HEART: S1, S2 regular rhythm ABDOMEN: Nondistended, soft lax. There is no tenderness. EXTREMITIES: He has 1+ leg edema LABORATORY DATA WBC count is 12.1, hemoglobin 13.4, platelet count 129. Sodium is 144. Potassium 3.4, chloride 107, bicarb 20.9, BUN 15. Creatinine 1.5. This was initial one. The last one now is still pending, but the one which was done in the morning is showing the sodium 150, potassium 3.1, chloride 118, bicarb 16.7, BUN 29, creatinine 2.27, lactic acid is 8.4, calcium is 9.5, phosphorus is 1.4, magnesium 1.6 and total bilirubin 0.6, AST is 184, ALT is 51. Troponin I greater than 40. Total protein is 5.2, albumin is 2.2. Cholesterol 111, LDL 53, TSH is 0.9, INR is 1.3. Urinalysis showing protein of 100, WBC 87. Toxicology screen was negative. Cultures are still pending including urine and blood culture. One urine culture showing gram-positive cocci. IMAGING STUDIES The patient had ultrasound of the kidneys done which shows echogenic kidneys with medical renal disease and bilateral renal cysts. Chest x-ray was done which shows ET tube in place without evidence of any mass. ASSESSMENT/PLAN 1. Acute kidney injury 2. Cardiogenic shock. 3. Respiratory failure and post cardiac arrest 4. Severe lactic acidosis 5. Shock liver. 6. History of congestive heart failure The patient has acute kidney injury most likely this is related to some hypotension. The urine output is on the lower side. He is getting IV fluid with sodium bicarbonate, also getting a Bumex infusion. Currently, he is on multiple pressors so acute kidney injury is most likely because of acute tubular necrosis. Continue the IVF and follow the urine output, if no improved. possible CRRT, overall prognosis is guarded. Thank you for the consultation and I will follow the patient while in the hospital. MD LEANDRO Locke/ /7:18 PM /8:59 AM OSBALDO
[2017-01-08] MEDS: LACTULOSE SYRUP 20 GM/30 ML CUP PO SCH (09:39)
[2017-01-08] MEDS: POLYETHYLENE GLYCOL 17 GM PKG PO SCH (09:39)
[2017-01-08] MEDS: PANTOPRAZOLE SODIUM 40 MG VIAL IV SCH (09:39)
[2017-01-08] MEDS: ASPIRIN 81 MG CHEW TAB PO SCH (09:40)
[2017-01-08] MEDS: SODIUM CHLORIDE 0.9% FLUSH 5 ML FLUSH IVF SCH ×2 (09:40→20:41)
[2017-01-08] MEDS: DOCUSATE SODIUM 100 MG CAP PO SCH ×2 (09:40→20:41)
[2017-01-08] MEDS: ARTIFICIAL TEARS OPTH SOLN 15 ML BTL EACH EYE SCH ×3 (09:40→17:25)
[2017-01-08] MEDS: ATORVASTATIN 40 MG TAB NG SCH (09:40)
[2017-01-08] MEDS: VASOPRESSIN INJ 40 UNITS in DEXTROSE 5% IN WATER 100ML INJ 98 ML IV SCH ×2 (09:41)
[2017-01-08] MEDS: CEFEPIME INJ 1,000 MG in SODIUM CHLORIDE 0.9% INJ 100 ML IV SCH (09:51)
[2017-01-08] MEDS: MAGNESIUM SULFATE 1 GM PREMIX 100 ML IV SCH ×2 (09:52→12:12)
[2017-01-08] MEDS: CHLORHEXIDINE 0.12% (ORAL KIT) 15 ML CUP MT SCH ×2 (09:53→20:25)
[2017-01-08] MEDS ORDERED: SODIUM BICARBONATE 8.4% INJ 100 MEQ in DEXTROSE 5% IN WATE 1000ML INJ 1,000 ML IV SCH ×2 (10:00)
[2017-01-08] MEDS ORDERED: MAGNESIUM SULFATE 1 GM PREMIX 100 ML ONE (12:11)
[2017-01-08] MEDS: EPINEPHrine (1:1000) INJ 2 MG in SODIUM CHLOR 0.9% 250 ML INJ 248 ML IV SCH ×2 (12:33→20:24)
[2017-01-08 13:09] LABS: APTT (PATIENT) 92.4 SEC (24.3-30.1)
[2017-01-08 13:11] LABS: BICARBONATE 21.1 MEQ/L (21.0-32.0); MAGNESIUM 1.7 MG/DL (1.5-2.5)
[2017-01-08 13:22] LABS: POTASSIUM 2.6 MEQ/L (3.5-5.1)
--- NOTE | 2017-01-08 13:43 | HHI.CCPN ---
Subjective Remarks/Hospital Course 76-year-old male. Real name is Karthikeyan Zapata. 05/27/1932[address] Richmond. 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 He presented the [facility] with the following history. At home, patient was in an argument with her son and girlfriend. He certainly clashes heart. CPR was initiated by EMS. Each is noted to be in V. tach, V. fib possibly torsades and was in asystole upon arrival to [facility]. Patient received 9 mg epinephrine, 4 and 50 mg amiodarone, 3 mg lidocaine and 2 g magnesium prior to arrival. CPR continued this facility where he received 5 mill grams epinephrine , 2 ampules sodium bicarbonate, one ampule of calcium chloride and was defibrillated twice with 203 100 J. He is currently on a Levophed drip. All laboratory are currently pending with return of spontaneous circulation 55 minutes and a code. Patient is currently in decerebrate type positioning. Pupils are slightly reactive and sluggish. Overbreathing the ventilator. 01/07: Placed on hypothermia protocol overnight. Acquired one dose of Demerol for shivering. Currently well sedated on the ventilator. Minimal pupillary response. No gag. Does not withdraw to pain. 5 cc an hour urine output. Subjective 01/08: Afebrile. Patient is been rewarmed to 36 Celsius. Urine output increasing on Bumex drip. Currently not overbreathing the ventilator. No gag. Doesn't withdraw to pain. Continues on Versed and fentanyl drip weaning off Objective Vital Signs Date Time Temp Pulse Resp B/P Pulse Ox O2 Delivery O2 Flow Rate FiO2 01/08/17 12:55 94 40 01/08/17 12:00 97.5 105 24 112/53 124/53 01/06/17 18:05 Ventilator Intake and Output 01/07/17 01/07/17 01/08/17 08:00 16:00 00:00 Intake Total 4099 ml 2876 ml 1526 ml Output Total 54 ml 270.0 ml 985.0 ml Balance 4045 ml 2606.0 ml 541.0 ml Result Diagram: 01/08/17 0403 01/08/17 1205 Other Results Microbiology Date/Time Procedure Status Source Growth 01/07/17 10:05 Aerobic Blood Culture - Preliminary Resulted Blood Peripheral NO GROWTH IN 1 DAY 01/07/17 10:05 Anaerobic Blood Culture - Preliminary Resulted Blood Peripheral NO GROWTH IN 1 DAY 01/06/17 23:40 Urine Culture - Preliminary Resulted Urine Catheterized Urine NO GROWTH IN 24 HOURS. 01/06/17 23:30 Gram Stain - Final Resulted Sputum Endotracheal 01/06/17 23:30 Sputum Culture - Preliminary Resulted Sputum Endotracheal LIGHT GROWTH NORMAL RESPIRATORY OLE... Imaging Last Impressions Chest X-Ray 01/08/17 0600 Signed Impressions: Service Date/Time: Sunday, January 08, 2017 04:43 - CONCLUSION: Mild right base consolidation or atelectasis. Edvin Miller MD Renal Ultrasound 01/07/17 0000 Signed Impressions: Service Date/Time: Saturday, January 07, 2017 09:21 - CONCLUSION: 1. Echogenic kidneys which can be seen with medical renal disease. 2. Bilateral renal cysts. Carlos Alberto Stewart MD Head CT 01/06/17 1740 Signed Impressions: Service Date/Time: Friday, January 06, 2017 19:15 - CONCLUSION: 1. No acute intracranial abnormality demonstrated. 2. Chronic white matter changes. 3. Sinusitis and near-complete opacification of the posterior nasopharynx, presumably related to secretions. Patient is intubated. After the patient is extubated, correlation for the possibility of a nasopharyngeal mass is recommended. Edvin Lucas MD Objective Remarks GENERAL: 76-year-old male, critically ill currently resting in bed in no acute distress SKIN: Cool and dry. Noted subtle area ecchymosis mid thorax from bruising HEAD: Atraumatic. Normocephalic. EYES: Pupils equal and round about 2 mm bilaterally and sluggish. No scleral icterus. No injection or drainage. ENT: No nasal bleeding or discharge. Mucous membranes pink and moist. Orotracheally intubated NECK: Trachea midline. No JVD. Supple CARDIOVASCULAR: RRR. S1, S2. No S4. I do not appreciate murmur RESPIRATORY: Diminished breath sounds throughout due to body habitus. Breath sounds equal bilaterally. GASTROINTESTINAL: Abdomen soft, obese. Bowel sounds are not appreciated. Hepatic and splenic margins not palpable. MUSCULOSKELETAL: Extremities with trace lower extremity nonpitting edema. No obvious deformities. NEUROLOGICAL: Sedate on the ventilator. Positive corneal reflex. Currently no gag. Does not withdraw to pain or noxious stimuli. Date of Insertion: Jan 06, 2017 Line: Central Venous Catheter Side: Right Location: Femoral A/P Assessment and Plan Neuro/Psych: Acute encephalopathy rule out anoxic brain injury CT head revealed no acute intracranial findings. Possible mass posterior nasopharynx will likely need reimaging post extubation Patient was ordered Versed drip at 2 mg an hour/fentanyl drips at 100 g an hour for sedation/analgesia while intubated Goal of RASS -2 Daily sedation vacation when clinically indicated Hypothermia protocol discontinued completed 24-hour CV: Witnessed V. tach arrest Coronary disease History of ND 5 Dilated cardiopathy ejection was 37% 2012 Aortic valve sclerosis Hypertension Lactic acidosis Dr. Wallis/cardiology notified. Dr. Richmond's patient EKG revealed sinus bradycardia/left bundle branch block which is chronic. Troponin peaked at greater than 40 currently 32 Cardia revealed diffuse hypokinesis. EF 20/5/30 percent. Mild MR/TR. FLORIDALMA 37 mmHg mild to moderate. Currently fusion On aspirin 81 mg daily Lipitor 40 milligrams by mouth daily. Currently norepinephrine at 11 mcg/m. Add vasopressin at 0.01 units an hour and epinephrine at 6 mg a minute to maintain MAP >65 Lactate initially trending down currently around 5.6. Every 6 hours until clear. On heparin drip for ND. Resp: Acute hypoxemic respiratory failure History of obstructive sleep apnea ACV 24/600/5/40 Ventilator bundle Bronchodilator therapy every 6 hours and as needed Spontaneous breathing trials when clinically indicated Possible left upper lobe infiltrate on chest x-ray. No pneumothorax GI: Elevated AST - likely cardiac Patient is currently nothing by mouth Start Glucerna 1.5 goal 55 cc an hour currently 15 cc an hour Protonix for GI prophylaxis Colace/ Senokot twice a day for bowel regimen Added Reglan for prokinetic agent : Soler will be placed for accurate I's and O's in a critically ill patient Endo: Hypothyroidism Elevated parathyroid hormone Insulin drip algorithm #3 Continue Levoxyl 25 g by mouth daily. TSH within normal limits Will need parathyroid scan when appropriate Check vitamin D 25 currently low. 24 urine calcium pending Renal: Follow-up on BMP. Last creatinine within normal limits. Heme: Chronic Xarelto use Leukocytosis Thrombocytopenia Recheck CBC in AM. Monitor trends. Re-Check coags in a.m. currently 1.4 ID: UTI Monitor for infection Day #3 cefepime day #2 daily Flagyl Blood cultures negative Sputum 01/06 negative UA with group D enterococcus MSK: Morbid obesity DJD Weight loss encouraged. PT evaluate and treat FEN: Hypo-magnesium Hypernatremia Hypophosphatemia Hypo-magnesium Follow-up on BMP, mag and phosphatase in 100. Will give 2 g mag sulfate, 15 mmol potassium phosphorus IV fluids seems to sterile water with 2 ampules of sodium bicarbonate at 75 cc an hour Access - Currently with left femoral cooling catheter day #3. We'll discontinue in a.m. Prophylaxis - GI - Protonix - DVT - SCD/Xarelto use -on heparin drip for ND Critical Care: The total critical care time was 55 minutes. Time to perform other separately billable procedures was not included in the critical care time. updated bedside Addendum: Patient re evaluated after arrival to ICU. Unchanged neuro exam. CT head is pending. Remains on 11 mcg/min of Levophed and will re evaluate after CT head for induced hypothermia. If remains on single pressor, will initiate induced hypothermia Frank Ansari MD Jan 08, 2017 13:43
[2017-01-08] MEDS: METOCLOPRAMIDE HCL 10 MG/2 ML VIAL IV PUSH SCH ×2 (14:17→21:52)
--- NOTE | 2017-01-08 19:04 | HHI.NPPN ---
Subjective History of Present Illness 76-year-old male with past medical history of ischemic heart disease, left bundle-branch block, history of dilated cardiomyopathy with ejection fraction of 37%, hypertension, irritable bowel syndrome, hyperlipidemia, obstructive sleep apnea, chronic low back pain, hypothyroidism who was admitted with cardiac arrest. I was called to see the patient because of elevated BUN and creatinine. Additional Remarks Patient remain intubated and now off sedation, still on pressors. Objective Data Data 01/07/17 01/08/17 19:00 07:00 Intake Total 2876 ml 3294 ml Output Total 597.0 ml 1160.0 ml Balance 2279.0 ml 2134.0 ml Intake Oral 0 ml IV Total 2786 ml 3029 ml Tube Feeding 145 ml Tube Irrigant 120 ml Other 90 ml Output Urine Total 397 ml 810 ml Tube Feeding Residual Discard 200.0 ml 350.0 ml # Bowel Movements 0 Vital Signs Date Time Temp Pulse Resp B/P Pulse Ox O2 Delivery O2 Flow Rate FiO2 01/08/17 18:00 116 01/08/17 17:02 94 40 01/08/17 16:00 98.4 113 24 107/54 94 124/47 01/08/17 16:00 106 01/08/17 16:00 40 01/08/17 14:00 112 01/08/17 12:55 94 40 01/08/17 12:00 97.5 105 24 112/53 96 124/53 01/08/17 12:00 40 01/08/17 12:00 105 01/08/17 10:36 95 40 01/08/17 10:00 97 01/08/17 08:00 98 01/08/17 08:00 40 01/08/17 08:00 96.4 93 24 97/54 94 118/56 01/08/17 04:10 94 40 01/08/17 04:00 40 01/08/17 04:00 94.6 92 24 103/66 93 103/48 01/08/17 01:02 93 40 01/08/17 00:00 40 01/08/17 00:00 91.4 72 24 95/52 92 93/49 01/07/17 23:00 78 01/07/17 22:03 93 40 01/07/17 20:00 40 01/07/17 20:00 91.4 65 24 99/55 93 108/50 01/07/17 19:10 93 40 -: 01/08/17 0403 01/08/17 1205 Physical Exam General Appearance Remarks Intubated and off sedation, unresponsive. Eyes Eye Exam: Pupils Equal Neck Neck Exam: Neck Supple Pulmonary Resp Exam: Rhonchi, Decreased Bases, Diminished Breath Sounds, Poor Inspiratory Effort Cardiology CV Exam: Regular, Normal Sinus Rhythm Gastrointestinal/Abdomen GI Exam: Soft, Non-Tender, Distended Extremeties Extremities Exam: Trace Edema Neurologic Neuro Exam: Unresponsive Assessment/Plan Assessment Summary: YULIYA/Acute Renal Failure, Hypotension Problem List: (1) Acute respiratory failure (2) Cardiogenic shock (3) Cardiac arrest (4) Hypothyroidism (5) Obstructive sleep apnea (6) Atrial fibrillation (7) Acute kidney injury Plan Patient remain unresponsive. BP is supported. Urine out put is adequate. On Bumex infusion. Creatinine is almost same. Follow urine out put and BMP. Problem Qualifiers (1) Hypothyroidism: Qualified Code: E03.9 - Hypothyroidism, unspecified type Rafi Echevarria MD Jan 08, 2017 19:04
[2017-01-08] MEDS: MEDIUM DOSE INSULIN NOVOLIN REGULAR SUPPLEMENTAL SCALE SQ SCH ×2 (20:00→23:56)
[2017-01-08 20:02] LABS: BICARBONATE 22.3 MEQ/L (21.0-32.0)
[2017-01-08 20:05] LABS: POTASSIUM 2.9 MEQ/L (3.5-5.1)
[2017-01-08 20:36] LABS: CALCIUM - URINE TIMED 8.4 MG/DL
[2017-01-08] MEDS: POTASSIUM CHLOR 40 MEQ PREMIX 100 ML IV SCH ×2 (20:41→23:15)
[2017-01-08] MEDS ORDERED: GLUCAGON 1 MG/ML VIAL OTHER PRN (20:45)
[2017-01-08] MEDS: HEPARIN-D5W INJ 250 ML IV SCH (23:14)
[2017-01-09] VITALS (15 sets, daily range): BP systolic 72–98; BP diastolic 34–57; PULSE 115–141; RESP 24; TEMP 99–101; O2SAT 92–98
[2017-01-09 00:16] LABS: APTT (PATIENT) 59.7 SEC (24.3-30.1)
[2017-01-09] MEDS: metroNIDAZOLE 500 MG INJ 100 ML IV SCH ×2 (01:58→09:04)
[2017-01-09] MEDS: CHLORHEXIDINE GLUCONATE 2 % 1 PACK (2 CLOTHS) TOP SCH (04:00)
[2017-01-09] MEDS: MEDIUM DOSE INSULIN NOVOLIN REGULAR SUPPLEMENTAL SCALE SQ SCH ×3 (04:00→12:00)
[2017-01-09] MEDS: RESP: ALBUTEROL 2.5 MG/IPRATROPIUM 0.5 MG NEB (SCH) INH ×3 (04:04→16:21)
[2017-01-09 04:43] LABS: AUTOMATED NEUTROPHIL # 8.1 TH/MM3 (1.8-7.7); BASOPHIL % 0.1 % (0.0-2.0); HEMATOCRIT 36.3 % (39.0-51.0); LYMPH % 8.1 % (9.0-44.0); LYMPHOCYTE # 0.8 TH/MM3 (1.0-4.8); MEAN CELL VOLUME 89.9 FL (80.0-100.0); MEAN CORPUSCULAR HEMOGLOBIN 30.6 PG (27.0-34.0); MONO % 12.6 % (0.0-8.0); NEUT % 79.2 % (16.0-70.0); PLATELET COUNT 121 TH/MM3 (150-450); RED BLOOD COUNT 4.04 MIL/MM3 (4.50-5.90); RED CELL DISTRIBUTION WIDTH 13.1 % (11.6-17.2); WHITE BLOOD COUNT 10.3 TH/MM3 (4.0-11.0)
[2017-01-09 04:44] LABS: HEMO FLAGS AUTO DIFF
[2017-01-09 04:47] LABS: APTT (PATIENT) 67.4 SEC (24.3-30.1)
[2017-01-09 05:19] LABS: ALKALINE PHOSPHATASE 62 U/L (45-117); ALT (GPT) 44 U/L (12-78); ANION GAP 15 MEQ/L (5-15); AST (GOT) 92 U/L (15-37); BICARBONATE 19.7 MEQ/L (21.0-32.0); BLOOD UREA NITROGEN 56 MG/DL (7-18); CHLORIDE 108 MEQ/L (98-107); GLOMERULAR FILTRATION RATE 15 ML/MIN (>89); MAGNESIUM 1.6 MG/DL (1.5-2.5); SODIUM (NA) 143 MEQ/L (136-145); TOTAL BILIRUBIN ADULT 0.8 MG/DL (0.2-1.0)
[2017-01-09] MEDS: BUMETANIDE INJ 100 ML IV SCH (05:28)
[2017-01-09] MEDS: NOREPINEPHRINE INJ 4 MG in SODIUM CHLOR 0.9% 250 ML INJ 250 ML IV SCH ×3 (05:28→10:12)
[2017-01-09 05:34] LABS: BANDS 63 % (0-6); METAMYELOCYTES 7 % (0-1); NEUTROPHIL # MANUAL DIFF 9.1 TH/MM3 (1.8-7.7); POLYS (SEG NEUTROPHILS) 18 % (16-70); SCAN/DIFF FINAL DIFF MANUAL; WBC DIFF SAMPLE 100
[2017-01-09 05:35] LABS: DOHLE BODIES PRESENT (NONE SEEN); PLATELET ESTIMATE SMEAR LOW (NORMAL); PLATELET MORPHOLOGY ENLARGED (NORMAL)
[2017-01-09] MEDS: EPINEPHrine (1:1000) INJ 2 MG in SODIUM CHLOR 0.9% 250 ML INJ 248 ML IV SCH ×2 (06:07→09:31)
[2017-01-09] MEDS: METOCLOPRAMIDE HCL 10 MG/2 ML VIAL IV PUSH SCH ×2 (06:07→13:12)
[2017-01-09] MEDS: LEVOTHYROXINE SODIUM 25 MCG TAB PO SCH (06:07)
[2017-01-09] MEDS: SENNOSIDES 8.6 MG TAB PO SCH (06:07)
[2017-01-09] MEDS: SODIUM BICARBONATE 8.4% INJ 100 MEQ in WATER STERILE FOR INJ 1,000 ML IV SCH (06:09)
--- NOTE | 2017-01-09 07:23 | PD.CARD.PN ---
Subjective Subjective Remarks Pt not responsive on vent Objective Medications Current Medications Medications (Trade) Dose Ordered Sig/Fareed Route Start Time Stop Time Status Last Admin (Tylenol) 650 mg Q6H PRN PO 01/06/17 17:45 01/08/17 23:35 (Protonix Inj) 40 mg DAILY IV 01/07/17 09:00 01/08/17 09:39 (Tears Naturale Opth Soln) 1 drop TID EACH EYE 01/06/17 18:00 01/08/17 17:25 (Zofran Inj) 4 mg Q6H PRN IV 01/06/17 17:45 (Colace) 100 mg BID PO 01/06/17 21:00 01/08/17 20:41 Miscellaneous Information 1 Q361D XX 01/06/17 17:45 (Chlorhexidine 2% Cloth) 3 pack Taper DAILY@04 TOP 01/07/17 04:00 01/03/18 03:59 01/09/17 04:00 Chlorhexidine Gluconate 3 pack 3 pack UNSCH PRN TOP 01/06/17 17:45 (Diprivan 1000 Mg/100ml Inj) 100 ml @ 0 mls/hr TITRATE IV 01/06/17 17:45 (Peridex 0.12% Liq) 15 ml BID@08,20 MT 01/06/17 20:00 01/08/17 20:25 (Synthroid) 25 mcg DAILY@06 PO 01/07/17 06:00 01/09/17 06:07 Lorazepam 1 mg 1 mg Q1H PRN IV 01/06/17 20:00 Midazolam HCl 100 ml @ 0 mls/hr TITRATE IV 01/06/17 20:00 01/08/17 08:00 (fentaNYL DRIP) 250 ml @ 0 mls/hr TITRATE IV 01/06/17 20:00 01/08/17 07:58 (NS Flush) 2 ml BID IVF 01/06/17 21:00 01/08/17 20:41 IV Flush 2 ml 2 ml UNSCH PRN IVF 01/06/17 20:00 01/07/17 05:52 Miscellaneous Information 0 ml @ 0 mls/hr UNSCH IV 01/06/17 20:00 (Levophed Inj/NS 250 ml Inj) 254 ml @ 0 mls/hr TITRATE IV 01/06/17 21:00 01/09/17 05:28 (Aspirin Chew) 81 mg DAILY PO 01/07/17 09:00 01/08/17 09:40 Atorvastatin Calcium 40 mg 40 mg DAILY NG 01/07/17 09:00 01/08/17 09:40 (Flagyl 500 Mg Inj) 100 ml @ 100 mls/hr Q8H IV 01/07/17 09:00 01/09/17 01:58 (Senokot) 17.2 mg Q12H PO 01/07/17 18:00 01/09/17 06:07 (Miralax) 17 gm DAILY PO 01/07/17 09:00 01/08/17 09:39 Lactulose 30 ml 30 ml DAILY PO 01/07/17 09:00 01/08/17 09:39 Vasopressin 40 units/Dextrose 100 ml @ 1.5 mls/hr Q24H IV 01/07/17 08:22 01/08/17 09:41 Heparin Sodium/ Dextrose 250 ml @ 0 mls/hr TITRATE IV 01/07/17 09:45 01/08/17 23:14 Bumetanide 100 ml @ 4 mls/hr CONTINUOUS IV 01/07/17 14:45 01/09/17 05:28 Sodium Bicarbonate 100 meq/Sterile Water 1,100 ml @ 75 mls/hr [id number] IV 01/08/17 05:45 01/09/17 06:09 (Adrenalin (1:1000) Inj/NS 250 ml Inj) 250 ml @ 0 mls/hr TITRATE IV 01/08/17 12:15 01/09/17 06:07 Metoclopramide HCl 5 mg 5 mg Q8HR IV PUSH 01/08/17 14:00 01/09/17 06:07 (Maxipime Inj/NS Inj) 100 ml @ 200 mls/hr Q24H IV 01/09/17 10:00 (D50w (Vial) Inj) 25 ml UNSCH PRN IV PUSH 01/08/17 20:45 (Glucagon Inj) 1 mg UNSCH PRN OTHER 01/08/17 20:45 Insulin Human Regular 1 1 Q4HR SQ 01/08/17 20:00 (Magnesium Sulfate 1 Gm Premix) 100 ml @ 100 mls/hr Q1H IV 01/09/17 07:15 01/09/17 09:14 Vital Signs / I&O Vital Signs Date Time Temp Pulse Resp B/P Pulse Ox O2 Delivery O2 Flow Rate FiO2 01/09/17 04:43 92 70 01/09/17 04:04 92 40 01/09/17 04:00 70 01/09/17 02:00 140 01/09/17 01:20 95 40 01/09/17 00:00 138 01/09/17 00:00 40 01/09/17 00:00 101.0 138 24 88/43 95 94/57 01/08/17 22:00 134 01/08/17 20:19 94 40 01/08/17 20:00 100.0 119 24 121/69 95 124/59 01/08/17 20:00 40 01/08/17 20:00 119 01/08/17 18:00 116 01/08/17 17:02 94 40 01/08/17 16:00 98.4 113 24 107/54 94 124/47 01/08/17 16:00 106 01/08/17 16:00 40 01/08/17 14:00 112 01/08/17 12:55 94 40 01/08/17 12:00 97.5 105 24 112/53 96 124/53 01/08/17 12:00 40 01/08/17 12:00 105 01/08/17 10:36 95 40 01/08/17 10:00 97 01/08/17 08:00 98 01/08/17 08:00 40 01/08/17 08:00 96.4 93 24 97/54 94 118/56 I/O 01/08/17 01/08/17 01/08/17 01/09/17 01/09/17 01/09/17 07:00 15:00 23:00 07:00 15:00 23:00 Intake Total 1768 ml 2812 ml 1820 ml Output Total 615 ml 978.0 ml 1220.0 ml 361 ml Balance 1153 ml 1834.0 ml 600.0 ml -361 ml Intake Oral 0 ml IV Total 1595 ml 2570 ml 1541 ml Tube Feeding 113 ml 122 ml 119 ml Tube Irrigant 60 ml 160 ml Other 120 ml Output Urine Total 615 ml 898 ml 930 ml 361 ml Tube Feeding Residual Discard 80.0 ml 290.0 ml # Bowel Movements 0 Physical Exam GENERAL: Well developed, well nourished. No acute distress on vent HEENT: Jugular venous pressure is normal. CHEST: Lungs clear to auscultation bilaterally. Unlabored respiratory effort. CARDIAC: Regular rate and rhythm without S3, S4, or murmur. ABDOMEN: Soft, nontender, no hepatosplenomegaly. Bowel sounds present. EXTREMITIES: No clubbing, cyanosis, or edema. Laboratory Laboratory Tests Test 01/08/17 01/08/17 01/08/17 01/08/17 11:15 12:05 12:30 16:00 Activated Partial 92.4 SEC 59.0 SEC Thromboplast Time Sodium Level 145 MEQ/L Potassium Level 2.6 MEQ/L Chloride Level 109 MEQ/L Carbon Dioxide Level 21.1 MEQ/L Anion Gap 15 MEQ/L Blood Urea Nitrogen 48 MG/DL Creatinine 3.23 MG/DL Estimat Glomerular Filtration 19 ML/MIN Rate Random Glucose 307 MG/DL Calcium Level 8.8 MG/DL Phosphorus Level 1.7 MG/DL Magnesium Level 1.7 MG/DL Troponin I 19.80 NG/ML Lactic Acid Level 5.5 mmol/L Test 01/08/17 01/08/17 01/08/17 01/09/17 17:00 18:00 23:50 04:18 Urine Total Volume 24 Hours 1750 ML Urine Calcium 24 Hour 147 MG/24HR Lactic Acid Level 3.3 mmol/L 2.6 mmol/L 4.2 mmol/L Sodium Level 144 MEQ/L 143 MEQ/L Potassium Level 2.9 MEQ/L 4.0 MEQ/L Chloride Level 109 MEQ/L 108 MEQ/L Carbon Dioxide Level 22.3 MEQ/L 19.7 MEQ/L Anion Gap 13 MEQ/L 15 MEQ/L Blood Urea Nitrogen 49 MG/DL 56 MG/DL Creatinine 3.28 MG/DL 3.93 MG/DL Estimat Glomerular Filtration 18 ML/MIN 15 ML/MIN Rate Random Glucose 106 MG/DL 145 MG/DL Calcium Level 8.6 MG/DL 7.9 MG/DL Activated Partial 59.7 SEC 67.4 SEC Thromboplast Time White Blood Count 10.3 TH/MM3 Red Blood Count 4.04 MIL/MM3 Hemoglobin 12.4 GM/DL Hematocrit 36.3 % Mean Corpuscular Volume 89.9 FL Mean Corpuscular Hemoglobin 30.6 PG Mean Corpuscular Hemoglobin 34.0 % Concent Red Cell Distribution Width 13.1 % Platelet Count 121 TH/MM3 Mean Platelet Volume 10.5 FL Neutrophils (%) (Auto) 79.2 % Lymphocytes (%) (Auto) 8.1 % Monocytes (%) (Auto) 12.6 % Eosinophils (%) (Auto) 0.0 % Basophils (%) (Auto) 0.1 % Neutrophils # (Auto) 8.1 TH/MM3 Lymphocytes # (Auto) 0.8 TH/MM3 Monocytes # (Auto) 1.3 TH/MM3 Eosinophils # (Auto) 0.0 TH/MM3 Basophils # (Auto) 0.0 TH/MM3 CBC Comment AUTO DIFF Differential Total Cells 100 Counted Neutrophils % (Manual) 18 % Band Neutrophils % 63 % Lymphocytes % 5 % Monocytes % 7 % Neutrophils # (Manual) 9.1 TH/MM3 Metamyelocytes 7 % Differential Comment FINAL DIFF MANUAL Dohle Bodies PRESENT Platelet Estimate LOW Platelet Morphology Comment ENLARGED Phosphorus Level 2.9 MG/DL Magnesium Level 1.6 MG/DL Total Bilirubin 0.8 MG/DL Aspartate Amino Transf 92 U/L (AST/SGOT) Alanine Aminotransferase 44 U/L (ALT/SGPT) Alkaline Phosphatase 62 U/L Total Protein 4.9 GM/DL Albumin 1.8 GM/DL Assessment and Plan Problem List: (1) Cardiogenic shock Assessment and Plan: no BB or AMEYA: remains on multiple pressors (2) Acute respiratory failure Assessment and Plan: not responsive off sedation, vent per CCM (3) Cardiac arrest Assessment and Plan: prognosis grim; agree with DNR, withdrawal appropriate per /if family requests (4) Coronary artery disease (5) Dilated cardiomyopathy (6) V tach (7) Atrial fibrillation (8) Hypokalemia Problem Qualifiers (1) Coronary artery disease: Ami Richmond MD Jan 09, 2017 07:22
[2017-01-09] MEDS: CHLORHEXIDINE 0.12% (ORAL KIT) 15 ML CUP MT SCH (08:00)
[2017-01-09] MEDS: MAGNESIUM SULFATE 1 GM PREMIX 100 ML IV SCH ×2 (09:04→09:07)
[2017-01-09] MEDS: ASPIRIN 81 MG CHEW TAB PO SCH (09:04)
[2017-01-09] MEDS: PANTOPRAZOLE SODIUM 40 MG VIAL IV SCH (09:04)
[2017-01-09] MEDS: ATORVASTATIN 40 MG TAB NG SCH (09:05)
[2017-01-09] MEDS: ARTIFICIAL TEARS OPTH SOLN 15 ML BTL EACH EYE SCH ×2 (09:05→13:00)
[2017-01-09] MEDS: POLYETHYLENE GLYCOL 17 GM PKG PO SCH (09:25)
[2017-01-09] MEDS: SODIUM CHLORIDE 0.9% FLUSH 5 ML FLUSH IVF SCH (09:25)
[2017-01-09] MEDS: LACTULOSE SYRUP 20 GM/30 ML CUP PO SCH (09:25)
[2017-01-09] MEDS: DOCUSATE SODIUM 100 MG CAP PO SCH (09:25)
[2017-01-09] MEDS ORDERED: CEFEPIME INJ 1,000 MG in SODIUM CHLORIDE 0.9% INJ 100 ML IV SCH (10:00)
--- NOTE | 2017-01-09 10:56 | HHI.NPPN ---
Subjective History of Present Illness 76-year-old male with past medical history of ischemic heart disease, left bundle-branch block, history of dilated cardiomyopathy with ejection fraction of 37%, hypertension, irritable bowel syndrome, hyperlipidemia, obstructive sleep apnea, chronic low back pain, hypothyroidism who was admitted with cardiac arrest. I was called to see the patient because of elevated BUN and creatinine. Additional Remarks Patient remain intubated and now off sedation, still on pressors and remain unresponsive. Objective Data Data 01/08/17 01/09/17 19:00 07:00 Intake Total 2812 ml 1820 ml Output Total 1803.0 ml 756 ml Balance 1009.0 ml 1064 ml Intake Oral 0 ml IV Total 2570 ml 1541 ml Tube Feeding 122 ml 119 ml Tube Irrigant 160 ml Other 120 ml Output Urine Total 1433 ml 756 ml Tube Feeding Residual Discard 370.0 ml # Bowel Movements 0 Vital Signs Date Time Temp Pulse Resp B/P Pulse Ox O2 Delivery O2 Flow Rate FiO2 01/09/17 08:39 97 70 01/09/17 06:00 127 01/09/17 04:43 92 70 01/09/17 04:04 92 40 01/09/17 04:00 132 01/09/17 04:00 70 01/09/17 04:00 100.0 132 24 73/34 92 72/45 01/09/17 02:00 140 01/09/17 01:20 95 40 01/09/17 00:00 138 01/09/17 00:00 40 01/09/17 00:00 101.0 138 24 88/43 95 94/57 01/08/17 22:00 134 01/08/17 20:19 94 40 01/08/17 20:00 100.0 119 24 121/69 95 124/59 01/08/17 20:00 40 01/08/17 20:00 119 01/08/17 18:00 116 01/08/17 17:02 94 40 01/08/17 16:00 98.4 113 24 107/54 94 124/47 01/08/17 16:00 106 01/08/17 16:00 40 01/08/17 14:00 112 01/08/17 12:55 94 40 01/08/17 12:00 97.5 105 24 112/53 96 124/53 01/08/17 12:00 40 01/08/17 12:00 105 -: 01/09/17 0418 01/09/17 0418 Physical Exam General Appearance Remarks Intubated and off sedation, unresponsive. Eyes Eye Exam: Pupils Equal Neck Neck Exam: Neck Supple Pulmonary Resp Exam: Rhonchi, Decreased Bases, Diminished Breath Sounds, Poor Inspiratory Effort Cardiology CV Exam: Regular, Normal Sinus Rhythm Gastrointestinal/Abdomen GI Exam: Soft, Non-Tender, Distended Extremeties Extremities Exam: Trace Edema Neurologic Neuro Exam: Unresponsive Assessment/Plan Assessment Summary: YULIYA/Acute Renal Failure, Hypotension Problem List: (1) Acute respiratory failure (2) Cardiogenic shock (3) Cardiac arrest (4) Hypothyroidism (5) Obstructive sleep apnea (6) Atrial fibrillation (7) Acute kidney injury Plan Patient remain unresponsive. BP is supported. Urine out put decreased. On Bumex infusion. Creatinine increased. Family at bed side, D/W the . Now he is NO CODE. does not want Dialysis. Waiting for his brother in law to come. They will consider withdrawal. Continue supportive care for now. Problem Qualifiers (1) Acute respiratory failure: Qualified Code: J96.01 - Acute respiratory failure with hypoxia (2) Hypothyroidism: Qualified Code: E03.9 - Hypothyroidism, unspecified type Rafi Echevarria MD Jan 09, 2017 10:56
--- NOTE | 2017-01-09 10:56 | MG ---
cc: GAIL WHITE M.D. Lab No: [id number] Date: 01/09/2017 Age: 76 Sex: M Race: __ DATE OF [address] Ansari TECHNIQUE Intubated, sedated,but turned off prior to study with photic stimulation. No withdrawal with stimulation per tech. CT shows chronic white matter changes INDICATIONS This is a 76-year-old man status post cardiac arrest, V-tach, ventricular fibrillatio, asystole upon arrival to the ED. 55 minutes of CPR, hypertensive with severe metabolic acidosis. DESCRIPTION OF RECORD Patient is intubated and not sedated, has some delta frequency waves seen. Some artifact is noted as well. EKG has some PVCs, overall significant slowing predominately in the delta frequency 1-2 Hz. Photic stimulation did not elicit any posterior driving response to tactile stimulation to the extremities and did not change the background either. IMPRESSION Abnormal EEG due to severely depressed cerebral function. No epileptic activity. May be related to a noxious encephalopathy. Clinical correlation. MD DELL Sorto/PETRONA /10:46 AM /10:51 AM
--- NOTE | 2017-01-09 11:12 | PD.CONS ---
Consult Service Palliative Care Consult Requested By Dr. Elan MD. Primary Care Physician unknown. Reason for Consultation a. To assist with evaluation and management of symptoms including: shortness of breath. b. To assist medical decision maker(s) with: better understanding of current medical conditions; weighing benefits/burdens of medical treatment options; making medical treatment decisions. HPI History of Present Illness Mr. Knox is a 76 y/o male with a medical history of coronary artery disease, prior myocardial infarcts, chronic left bundle branch block, cardiomyopathy, hypertension, aortic valve sclerosis, dyslipidemia, obstructive sleep apnea and chronic back pain. Patient presented to ED via EMS on 01/06/17 secondary to witnessed cardiac arrest. It has been reported that patient was at home having a verbal argument with a family member when he became unresponsive. EMS was called to is scene, patient was noted to be on V. tach/ V. fib and possible torsades. CPR was initiated by EMS and patient received multiple rounds of ACLS medications and defibrillation x 11 times. Upon arriving to ED, patient was found to be on a systole. CPR was continued with additional ACLS medications and defibrillation. He returned to spontaneous circulation after 55 minutes of cardiac arrest. He was found to be in decerebrate position with pupils slightly reactive and sluggish. CT of the head was obtained on 01/06/17 showing no acute process. Patient was placed on hypothermia protocol 01/06/17. EKG on 01/07/17 showed first -degree AV block. Cardiology -Dr. Richmond consulted. Patient was found a poor candidate to catheter lab secondary to clinical condition and comorbidities. Echo obtained on 01/07/17 showing EF of 25-30% with mild diffuse hypokinesis. Nephrology -Dr. Echevarria consulted on 01/07/17 secondary to elevated BUN/creatinine BUN/creatinine 43/3.01 as well as decreased urinary output. Patient was found to be in acute kidney injury likely secondary to acute tubular necrosis. Renal US 01/07/17 revealing echogenic kidneys and bilateral renal cysts. Renal function continued to worsen BUN/creatinine today 56/3.93. 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 Rewarming completed on 01/08/17. Prognosis grim, family opted for DNR status given his critical condition. Palliative care has been consulted to assist with goals of care clarification and emotional support. Patient seen in ICU, remains on mechanical ventilation, 70% FiO2 and respiratory rate of 24. Has been off sedation since yesterday, unresponsive to voice or tactile stimuli. Not withdrawing to pain. Fixed pupils. No cough reflex when suctioned. Chest x-ray today showing mild right base consolidation or atelectasis. On Bumex drip with marginal urinary output of approximately 10 mL an hour. Remains on multiple vasopressors, SBP in the 70s to 80s. Family meeting. In attendance patient's Mari, daughter Bairon and son Karthikeyan. Medical update provided. Review events leading to these hospitalization, clinical course and treatment plan. Explained pathophysiology of cardiac arrest and current clinical presentation to include likelihood of anoxic brain injury, cardiogenic shock and acute tubular necrosis. Reviewed very poor prognosis for meaningful neurological for clinical recovery given prolonged CPR/55 min to ROS, patient's age, significant cardiac history with prior MIs and multiple comorbidities. Family with a good understanding of his current clinical condition, family electing to withdrawal life support/ transition to comfort directed care tonight after additional family members visit. Anticipatory guidance provided. Spiritual services offered but declined , family's personalized living assistant to visit. Ongoing emotional support and active listening provided. Case discussed with Dr. Quezada -palliative care and bedside RN. . Function/Cognitive Trajectory No cognitive decline has been reported. Patient living independently with . reports that during the past 3 months patient has been feeling increasingly tired, falling asleep during dinner and requiring some assistance with ADLs. . . Review of Systems ROS Limitations: Clinical Condition, Intubated, Unresponsive Constitutional: DENIES: Fever, Weight loss Endocrine: DENIES: Heat/cold intolerance Ears, nose, mouth, throat: DENIES: Tinnitus, Hearing loss Respiratory: COMPLAINS OF: Apneas Cardiovascular: COMPLAINS OF: Chest pain Gastrointestinal: DENIES: Diarrhea, Nausea, Vomiting Musculoskeletal: DENIES: Back pain Hematologic/Lymphatics: DENIES: Bruising Immunologic/Allergic: DENIES: Eczema Neurologic: DENIES: Abnormal gait Other ROS: Limited ROS secondary to clinical condition, patient intubated on mechanical ventilation. ROS obtained from family, medical records and clinical observation. Past Family Social History Coded Allergies: No Known Allergies (Verified , 11/26/16) Past Medical History Coronary artery disease History of MIs Chronic left bundle branch block Cardiomyopathy Hypertension Aortic valve sclerosis Dyslipidemia Obstructive sleep apnea Chronic low back pain Hypothyroidism . Past Surgical History Bilateral total knee replacement Lipoma removal on back . Reported Medications Previously on lisinopril 20 mg twice a day Xarelto 20 mg by mouth daily Metoprolol 100 mg by mouth twice a day Fosamax 70 mg by mouth daily Levoxyl 50 g daily Lasix 20 mg by mouth twice a day Potassium chloride 20 mEq by mouth twice a day Vitamin D 2000 units twice a day Senokot with Colace 1 tablet twice a day . Current Medications Medications (Trade) Dose Ordered Sig/Fareed Route Start Time Stop Time Status Last Admin (Tylenol) 650 mg Q6H PRN PO 01/06/17 17:45 01/08/17 23:35 (Protonix Inj) 40 mg DAILY IV 01/07/17 09:00 01/09/17 09:04 (Tears Naturale Opth Soln) 1 drop TID EACH EYE 01/06/17 18:00 01/09/17 09:05 (Zofran Inj) 4 mg Q6H PRN IV 01/06/17 17:45 (Colace) 100 mg BID PO 01/06/17 21:00 01/09/17 09:25 Miscellaneous Information 1 Q361D XX 01/06/17 17:45 (Chlorhexidine 2% Cloth) 3 pack Taper DAILY@04 TOP 01/07/17 04:00 01/03/18 03:59 01/09/17 04:00 Chlorhexidine Gluconate 3 pack 3 pack UNSCH PRN TOP 01/06/17 17:45 (Diprivan 1000 Mg/100ml Inj) 100 ml @ 0 mls/hr TITRATE IV 01/06/17 17:45 (Peridex 0.12% Liq) 15 ml BID@08,20 MT 01/06/17 20:00 01/09/17 08:00 (Synthroid) 25 mcg DAILY@06 PO 01/07/17 06:00 01/09/17 06:07 Lorazepam 1 mg 1 mg Q1H PRN IV 01/06/17 20:00 Midazolam HCl 100 ml @ 0 mls/hr TITRATE IV 01/06/17 20:00 01/08/17 08:00 (fentaNYL DRIP) 250 ml @ 0 mls/hr TITRATE IV 01/06/17 20:00 01/08/17 07:58 (NS Flush) 2 ml BID IVF 01/06/17 21:00 01/09/17 09:25 IV Flush 2 ml 2 ml UNSCH PRN IVF 01/06/17 20:00 01/07/17 05:52 Miscellaneous Information 0 ml @ 0 mls/hr UNSCH IV 01/06/17 20:00 (Levophed Inj/NS 250 ml Inj) 254 ml @ 0 mls/hr TITRATE IV 01/06/17 21:00 01/09/17 10:12 (Aspirin Chew) 81 mg DAILY PO 01/07/17 09:00 01/09/17 09:04 Atorvastatin Calcium 40 mg 40 mg DAILY NG 01/07/17 09:00 01/09/17 09:05 (Flagyl 500 Mg Inj) 100 ml @ 100 mls/hr Q8H IV 01/07/17 09:00 01/09/17 09:04 (Senokot) 17.2 mg Q12H PO 01/07/17 18:00 01/09/17 06:07 (Miralax) 17 gm DAILY PO 01/07/17 09:00 01/09/17 09:25 Lactulose 30 ml 30 ml DAILY PO 01/07/17 09:00 01/09/17 09:25 Vasopressin 40 units/Dextrose 100 ml @ 1.5 mls/hr Q24H IV 01/07/17 08:22 01/08/17 09:41 Heparin Sodium/ Dextrose 250 ml @ 0 mls/hr TITRATE IV 01/07/17 09:45 01/08/17 23:14 Bumetanide 100 ml @ 4 mls/hr CONTINUOUS IV 01/07/17 14:45 01/09/17 05:28 Sodium Bicarbonate 100 meq/Sterile Water 1,100 ml @ 75 mls/hr [id number] IV 01/08/17 05:45 01/09/17 06:09 (Adrenalin (1:1000) Inj/NS 250 ml Inj) 250 ml @ 0 mls/hr TITRATE IV 01/08/17 12:15 01/09/17 09:31 Metoclopramide HCl 5 mg 5 mg Q8HR IV PUSH 01/08/17 14:00 01/09/17 06:07 (Maxipime Inj/NS Inj) 100 ml @ 200 mls/hr Q24H IV 01/09/17 10:00 01/09/17 09:04 (D50w (Vial) Inj) 25 ml UNSCH PRN IV PUSH 01/08/17 20:45 (Glucagon Inj) 1 mg UNSCH PRN OTHER 01/08/17 20:45 (NovoLIN R SUPPLEMENTAL SCALE) 1 Q4HR SQ 01/08/17 20:00 Family History Mother -diabetes and heart failure Father -cirrhosis . Substance Use Tobacco: Former smoker. Quit 30 years ago. Alcohol: None reported. Prescription med abuse: None reported. Illicits: None reported. . Psychosocial History Patient originally from [place]. to [place] for the past 56 years. They have 2 children together, Bairon and Karthikeyan. Moved to [place] in 1982. Patient is a former construction safety manager. . Spiritual/Cultural Factors Islam. . Living Will: Never completed Health Care Surrogate: Never completed Durable Power of Local Sales Associate: Never completed Health Care Surrogate(s): As per [place] statute, [place] healthcare decision-making falls to patient's [place]. . Documented care wishes: No living will completed. . Family/friends goals: No code. Plan to withdrawal life support/transition to comfort-directed care likely tonight after additional family members visit. . Ethical and Legal Issues No ethical legal issues have been identified. No living will completed. . Physical Exam Vital Signs Date Time Temp Pulse Resp B/P Pulse Ox O2 Delivery O2 Flow Rate FiO2 01/09/17 08:39 97 70 01/09/17 06:00 127 01/09/17 04:43 92 70 01/09/17 04:04 92 40 01/09/17 04:00 132 01/09/17 04:00 70 01/09/17 04:00 100.0 132 24 73/34 92 72/45 01/09/17 02:00 140 01/09/17 01:20 95 40 01/09/17 00:00 138 01/09/17 00:00 40 01/09/17 00:00 101.0 138 24 88/43 95 94/57 01/08/17 22:00 134 01/08/17 20:19 94 40 01/08/17 20:00 100.0 119 24 121/69 95 124/59 01/08/17 20:00 40 01/08/17 20:00 119 01/08/17 18:00 116 01/08/17 17:02 94 40 01/08/17 16:00 98.4 113 24 107/54 94 124/47 01/08/17 16:00 106 01/08/17 16:00 40 01/08/17 14:00 112 01/08/17 12:55 94 40 01/08/17 12:00 97.5 105 24 112/53 96 124/53 01/08/17 12:00 40 01/08/17 12:00 105 01/08/17 01/09/17 19:00 07:00 Intake Total 2812 ml 1820 ml Output Total 1803.0 ml 756 ml Balance 1009.0 ml 1064 ml Intake Oral 0 ml IV Total 2570 ml 1541 ml Tube Feeding 122 ml 119 ml Tube Irrigant 160 ml Other 120 ml Output Urine Total 1433 ml 756 ml Tube Feeding Residual Discard 370.0 ml # Bowel Movements 0 Exam CONSTITUTIONAL/GENERAL: This is an adequately nourished patient, in no apparent distress. Intubated on mechanical ventilation TUBES/LINES/DRAINS: PIV'S, Soler catheter, ET tube, OG, left femoral central line. SKIN: No jaundice, rashes, or lesions. Ecchymoses on upper extremities. No wounds seen anteriorly. Skin temperature appropriate. Not diaphoretic. HEAD: Atraumatic. Normocephalic. EYES: Pupils fixed. No scleral icterus. No injection or drainage. ENT: Unable to assess his hearing secondary to clinical condition. Nose without bleeding or purulent drainage. Dry oral mucosa. NECK: Trachea midline. Supple. CARDIOVASCULAR: Tachycardic with heart rate in the 110s. Regular rate and rhythm. Peripheral pulses symmetric. RESPIRATORY/CHEST: Symmetric, unlabored respirations. Clear diminished to auscultation. GASTROINTESTINAL: Abdomen soft, large, round. Unable to appreciate hepato- splenomegaly secondary to body habitus. Bowel sounds present. GENITOURINARY: Without palpable bladder distension. Soler catheter in place. MUSCULOSKELETAL: Extremities without clubbing, cyanosis, or edema. No mottling or clubbing. NEUROLOGICAL: Not sedated. Unresponsive to verbal or tactile stimuli. Not withdrawing to pain. Fixed pupils. No cough reflex when deep suctioned. PSYCHIATRIC: Unable to assess secondary to clinical condition. . Diagnostic Tests Laboratory Laboratory Tests Test 01/06/17 01/06/17 01/06/17 01/06/17 17:00 17:47 18:42 20:10 Prothrombin Time 13.6 SEC (9.8-11.6) Prothromb Time International 1.2 RATIO Ratio Activated Partial 25.7 SEC Thromboplast Time (24.3-30.1) Sodium Level 144 MEQ/L 143 MEQ/L (136-145) (136-145) Potassium Level 3.4 MEQ/L 3.5 MEQ/L (3.5-5.1) (3.5-5.1) Chloride Level 107 MEQ/L 107 MEQ/L (98-107) (98-107) Carbon Dioxide Level 20.9 MEQ/L 26.0 MEQ/L (21.0-32.0) (21.0-32.0) Anion Gap 16 MEQ/L (5-15) 10 MEQ/L (5-15) Blood Urea Nitrogen 15 MG/DL (7-18) 21 MG/DL (7-18) Creatinine 1.51 MG/DL 1.96 MG/DL (0.60-1.30) (0.60-1.30) Estimat Glomerular Filtration 40 ML/MIN (>89) 30 ML/MIN (>89) Rate Random Glucose 219 MG/DL 260 MG/DL (74-106) (74-106) Lactic Acid Level 8.5 mmol/L 4.6 mmol/L (0.4-2.0) (0.4-2.0) Calcium Level 11.7 MG/DL 11.9 MG/DL (8.5-10.1) (8.5-10.1) Protein Corrected Calcium 12.0 MG/DL 12.1 MG/DL (8.5-10.1) (8.5-10.1) Phosphorus Level 3.3 MG/DL 3.2 MG/DL (2.5-4.9) (2.5-4.9) Magnesium Level 3.4 MG/DL 2.2 MG/DL (1.5-2.5) (1.5-2.5) Total Bilirubin 0.4 MG/DL 0.7 MG/DL (0.2-1.0) (0.2-1.0) Aspartate Amino Transf 43 U/L (15-37) 159 U/L (15-37) (AST/SGOT) Alanine Aminotransferase 31 U/L (12-78) 56 U/L (12-78) (ALT/SGPT) Alkaline Phosphatase 115 U/L 118 U/L (45-117) (45-117) Total Creatine Kinase 156 U/L (39-308) Troponin I 0.17 NG/ML 32.00 NG/ML (0.02-0.05) (0.02-0.05) Total Protein 6.8 GM/DL 7.0 GM/DL (6.4-8.2) (6.4-8.2) Albumin 2.9 GM/DL 3.1 GM/DL (3.4-5.0) (3.4-5.0) White Blood Count 12.7 TH/MM3 (4.0-11.0) Red Blood Count 4.90 MIL/MM3 (4.50-5.90) Hemoglobin 15.2 GM/DL (13.0-17.0) Hematocrit 47.2 % (39.0-51.0) Mean Corpuscular Volume 96.3 FL (80.0-100.0) Mean Corpuscular Hemoglobin 31.0 PG (27.0-34.0) Mean Corpuscular Hemoglobin 32.2 % Concent (32.0-36.0) Red Cell Distribution Width 13.6 % (11.6-17.2) Platelet Count 158 TH/MM3 (150-450) Mean Platelet Volume 11.3 FL (7.0-11.0) Neutrophils (%) (Auto) 24.4 % (16.0-70.0) Lymphocytes (%) (Auto) 69.1 % (9.0-44.0) Monocytes (%) (Auto) 5.1 % (0.0-8.0) Eosinophils (%) (Auto) 1.0 % (0.0-4.0) Basophils (%) (Auto) 0.4 % (0.0-2.0) Neutrophils # (Auto) 3.1 TH/MM3 (1.8-7.7) Lymphocytes # (Auto) 8.8 TH/MM3 (1.0-4.8) Monocytes # (Auto) 0.6 TH/MM3 (0-0.9) Eosinophils # (Auto) 0.1 TH/MM3 (0-0.4) Basophils # (Auto) 0.1 TH/MM3 (0-0.2) CBC Comment AUTO DIFF Differential Total Cells 100 Counted Neutrophils % (Manual) 37 % (16-70) Band Neutrophils % 1 % (0-6) Lymphocytes % 50 % (9-44) Monocytes % 9 % (0-8) Eosinophils % 2 % (0-4) Neutrophils # (Manual) 5.0 TH/MM3 (1.8-7.7) Metamyelocytes 1 % (0-1) Differential Comment FINAL DIFF MANUAL Platelet Estimate NORMAL (NORMAL) Platelet Morphology Comment NORMAL (NORMAL) Acanthocytes OCC (NORMAL) Urine Color YELLOW (YELLW/STRAW) Urine Turbidity HAZY (CLEAR) Urine pH 7.0 (5.0-8.5) Urine Specific [place] 1.012 (1.002-1.035) Urine Protein 30 mg/dL (NEG-TRACE) Urine Glucose (UA) NEG mg/dL (NEG) Urine Ketones NEG mg/dL (NEG) Urine Occult Blood MOD (NEG) Urine Nitrite NEG (NEG) Urine Bilirubin NEG (NEG) Urine Urobilinogen LESS THAN 2.0 MG/DL (LESS THAN 2.0) Urine Leukocyte Esterase TRACE (NEG) Urine RBC /hpf (0-3) Urine WBC 10 /hpf (0-5) Urine Squamous Epithelial <1 /hpf (0-5) Cells Urine Amorphous Sediment FEW Urine Bacteria FEW /hpf (NONE) Urine Hyaline Casts 5 /lpf (RARE) Urine Mucus FEW /lpf (OCC) Microscopic Urinalysis Comment CATH-CULTURE IND Blood Gas Puncture Site RT RADIAL CENTRAL LINE Blood Gas Patient Temperature 98.6 98.6 Blood Gas HCO3 19 mmol/L (22-26) Blood Gas Base Excess -6.9 mmol/L (-2-2) Blood Gas Oxygen Saturation 90 % (90-100) Arterial Blood pH 7.25 (7.380-7.420) Arterial Blood Partial 45 mmHg (38-42) Pressure CO2 Arterial Blood Partial 78 mmHG Pressure O2 (61-120) Arterial Blood Oxygen Content 20.0 Vol % (12.0-20.0) Arterial Blood 1.7 % (0-4) Carboxyhemoglobin Arterial Blood Methemoglobin 2.2 % (0-2) Blood Gas Hemoglobin 15.9 G/DL (12.0-16.0) Oxygen Delivery Device VENTILATOR VENTILATOR Blood Gas Ventilator Setting A/C14/550/PEEP10 Blood Gas Inspired Oxygen 100 % 100 % Venous Blood pH 7.21 (7.360-7.400) Venous Blood Partial Pressure 62 mmHg (44-48) CO2 Venous Blood Partial Pressure 34 mmHg (35-40) O2 Venous Blood HCO3 24 mmol/L (22-26) Venous Blood Oxygen Saturation 45 % (70-76) Venous Blood Oxygen Content 10.6 Vol % (9.0-17.0) Venous Blood Base Excess -2.7 mmol/L (-2-2) Parathyroid Hormone (Intact) 856.8 PG/ML (12.4-76.8) Neuron Specific Enolase (()) Test 01/06/17 01/06/17 01/06/17 01/07/17 22:20 23:40 23:50 01:10 Blood Gas Puncture Site ART LINE Blood Gas Patient Temperature 98.6 Blood Gas HCO3 19 mmol/L (22-26) Blood Gas Base Excess -6.1 mmol/L (-2-2) Blood Gas Oxygen Saturation 98 % (90-100) Arterial Blood pH 7.30 (7.380-7.420) Arterial Blood Partial 40 mmHg (38-42) Pressure CO2 Arterial Blood Partial 338 mmHg Pressure O2 (61-120) Arterial Blood Oxygen Content 22.8 Vol % (12.0-20.0) Arterial Blood 0.9 % (0-4) Carboxyhemoglobin Arterial Blood Methemoglobin 1.0 % (0-2) Blood Gas Hemoglobin 16.0 G/DL (12.0-16.0) Oxygen Delivery Device VENTILATOR Blood Gas Ventilator Setting A/C 600/18/10 PEEP Blood Gas Inspired Oxygen 100 % Urine Color RED (YELLW/STRAW) Urine Turbidity TURBID (CLEAR) Urine pH 6.5 (5.0-8.5) Urine Specific [place] 1.006 (1.002-1.035) Urine Protein 100 mg/dL (NEG-TRACE) Urine Glucose (UA) 150 mg/dL (NEG) Urine Ketones NEG mg/dL (NEG) Urine Occult Blood LARGE (NEG) Urine Nitrite NEG (NEG) Urine Bilirubin NEG (NEG) Urine Urobilinogen LESS THAN 2.0 MG/DL (LESS THAN 2.0) Urine Leukocyte Esterase TRACE (NEG) Urine RBC /hpf (0-3) Urine WBC 87 /hpf (0-5) Urine Bacteria FEW /hpf (NONE) Microscopic Urinalysis Comment CATH-CULTURE IND Urine Opiates Screen NEG (NEG) Urine Barbiturates Screen NEG (NEG) Urine Amphetamines Screen NEG (NEG) Urine Benzodiazepines Screen NEG (NEG) Urine Cocaine Screen NEG (NEG) Urine Cannabinoids Screen NEG (NEG) Nasal Screen MRSA (PCR) NEGATIVE (NEGATIVE) Blood Type O POSITIVE Antibody Screen NEGATIVE Test 01/07/17 01/07/17 01/07/17 01/07/17 03:35 05:04 08:14 09:55 White Blood Count 14.1 TH/MM3 13.1 TH/MM3 (4.0-11.0) (4.0-11.0) Red Blood Count 4.49 MIL/MM3 4.62 MIL/MM3 (4.50-5.90) (4.50-5.90) Hemoglobin 13.8 GM/DL 14.2 GM/DL (13.0-17.0) (13.0-17.0) Hematocrit 42.0 % 42.4 % (39.0-51.0) (39.0-51.0) Mean Corpuscular Volume 93.6 FL 91.9 FL (80.0-100.0) (80.0-100.0) Mean Corpuscular Hemoglobin 30.7 PG 30.8 PG (27.0-34.0) (27.0-34.0) Mean Corpuscular Hemoglobin 32.9 % 33.5 % Concent (32.0-36.0) (32.0-36.0) Red Cell Distribution Width 13.1 % 13.3 % (11.6-17.2) (11.6-17.2) Platelet Count 132 TH/MM3 151 TH/MM3 (150-450) (150-450) Mean Platelet Volume 9.6 FL 9.7 FL (7.0-11.0) (7.0-11.0) Neutrophils (%) (Auto) 83.5 % (16.0-70.0) Lymphocytes (%) (Auto) 7.1 % (9.0-44.0) Monocytes (%) (Auto) 9.4 % (0.0-8.0) Eosinophils (%) (Auto) 0.0 % (0.0-4.0) Basophils (%) (Auto) 0.0 % (0.0-2.0) Neutrophils # (Auto) 11.8 TH/MM3 (1.8-7.7) Lymphocytes # (Auto) 1.0 TH/MM3 (1.0-4.8) Monocytes # (Auto) 1.3 TH/MM3 (0-0.9) Eosinophils # (Auto) 0.0 TH/MM3 (0-0.4) Basophils # (Auto) 0.0 TH/MM3 (0-0.2) CBC Comment DIFF FINAL Differential Comment Prothrombin Time 15.3 SEC 14.2 SEC (9.8-11.6) (9.8-11.6) Prothromb Time International 1.4 RATIO 1.3 RATIO Ratio Activated Partial 29.2 SEC 29.6 SEC Thromboplast Time (24.3-30.1) (24.3-30.1) Sodium Level 150 MEQ/L (136-145) Potassium Level 3.1 MEQ/L (3.5-5.1) Chloride Level 118 MEQ/L (98-107) Carbon Dioxide Level 16.7 MEQ/L (21.0-32.0) Anion Gap 15 MEQ/L (5-15) Blood Urea Nitrogen 29 MG/DL (7-18) Creatinine 2.27 MG/DL (0.60-1.30) Estimat Glomerular Filtration 28 ML/MIN (>89) Rate Random Glucose 276 MG/DL (74-106) Lactic Acid Level 8.4 mmol/L (0.4-2.0) Calcium Level 9.5 MG/DL (8.5-10.1) Phosphorus Level 1.4 MG/DL (2.5-4.9) Magnesium Level 1.6 MG/DL (1.5-2.5) Total Bilirubin 0.6 MG/DL (0.2-1.0) Aspartate Amino Transf 184 U/L (15-37) (AST/SGOT) Alanine Aminotransferase 51 U/L (12-78) (ALT/SGPT) Alkaline Phosphatase 76 U/L (45-117) Total Protein 5.2 GM/DL (6.4-8.2) Albumin 2.2 GM/DL (3.4-5.0) Triglycerides Level 56 MG/DL (42-150) Cholesterol Level 111 MG/DL (120-200) LDL Cholesterol 53 MG/DL (0-99) HDL Cholesterol 46.8 MG/DL (40.0-60.0) Cholesterol/HDL Ratio 2.37 RATIO Thyroid Stimulating Hormone 0.952 uIU/ML 3rd Gen (0.358-3.740) Blood Gas Puncture Site ART LINE Blood Gas Patient Temperature 98.6 Blood Gas HCO3 14 mmol/L (22-26) Blood Gas Base Excess -12.4 mmol/L (-2-2) Blood Gas Oxygen Saturation 96 % (90-100) Arterial Blood pH 7.21 (7.380-7.420) Arterial Blood Partial 36 mmHg (38-42) Pressure CO2 Arterial Blood Partial 119 mmHg Pressure O2 (61-120) Arterial Blood Oxygen Content 18.4 Vol % (12.0-20.0) Arterial Blood 1.0 % (0-4) Carboxyhemoglobin Arterial Blood Methemoglobin 0.9 % (0-2) Blood Gas Hemoglobin 13.6 G/DL (12.0-16.0) Oxygen Delivery Device VENTILATOR Blood Gas Ventilator Setting AC18/600/PEEP10 Blood Gas Inspired Oxygen 45 % Troponin I GREATER THAN 40.00 NG/ML (0.02-0.05) 25-Hydroxy Vitamin D Total 26.8 ng/ML (30-100) Vitamin D 1,25-Dihydroxy 72 pg/mL (18-64) Test 01/07/17 01/07/17 01/07/17 01/07/17 10:25 12:05 18:08 18:11 Blood Gas Puncture Site ART LINE ART LINE Blood Gas Patient Temperature 98.6 98.6 Blood Gas HCO3 16 mmol/L 13 mmol/L (22-26) (22-26) Blood Gas Base Excess -9.0 mmol/L -11.8 mmol/L (-2-2) (-2-2) Blood Gas Oxygen Saturation 93 % (90-100) 91 % (90-100) Arterial Blood pH 7.34 7.33 (7.380-7.420) (7.380-7.420) Arterial Blood Partial 30 mmHg (38-42) 25 mmHg (38-42) Pressure CO2 Arterial Blood Partial 76 mmHg 69 mmHg Pressure O2 (61-120) (61-120) Arterial Blood Oxygen Content 18.4 Vol % 18.1 Vol % (12.0-20.0) (12.0-20.0) Arterial Blood 1.2 % (0-4) 1.2 % (0-4) Carboxyhemoglobin Arterial Blood Methemoglobin 1.1 % (0-2) 1.2 % (0-2) Blood Gas Hemoglobin 14.1 G/DL 14.2 G/DL (12.0-16.0) (12.0-16.0) Oxygen Delivery Device VENTILATOR VENTILATOR Blood Gas Ventilator Setting 600/AC24/PEEP5 600/AC24/PEEP5 Blood Gas Inspired Oxygen 40 % 40 % Lactic Acid Level 10.7 mmol/L 12.1 mmol/L (0.4-2.0) (0.4-2.0) White Blood Count 12.1 TH/MM3 (4.0-11.0) Red Blood Count 4.31 MIL/MM3 (4.50-5.90) Hemoglobin 13.4 GM/DL (13.0-17.0) Hematocrit 39.9 % (39.0-51.0) Mean Corpuscular Volume 92.6 FL (80.0-100.0) Mean Corpuscular Hemoglobin 31.1 PG (27.0-34.0) Mean Corpuscular Hemoglobin 33.5 % Concent (32.0-36.0) Red Cell Distribution Width 13.4 % (11.6-17.2) Platelet Count 129 TH/MM3 (150-450) Mean Platelet Volume 10.2 FL (7.0-11.0) Activated Partial GREATER THAN Thromboplast Time 153.4 SEC (24.3-30.1) Sodium Level 148 MEQ/L (136-145) Potassium Level 2.7 MEQ/L (3.5-5.1) Chloride Level 112 MEQ/L (98-107) Carbon Dioxide Level 14.9 MEQ/L (21.0-32.0) Anion Gap 21 MEQ/L (5-15) Blood Urea Nitrogen 41 MG/DL (7-18) Creatinine 2.86 MG/DL (0.60-1.30) Estimat Glomerular Filtration 21 ML/MIN (>89) Rate Random Glucose 411 MG/DL (74-106) Calcium Level 9.4 MG/DL (8.5-10.1) Phosphorus Level 1.7 MG/DL (2.5-4.9) Magnesium Level 1.9 MG/DL (1.5-2.5) Troponin I 31.60 NG/ML (0.02-0.05) Test 01/07/17 01/07/17 01/08/17 01/08/17 22:18 23:51 00:20 02:20 Activated Partial GREATER THAN GREATER THAN 93.8 SEC Thromboplast Time 153.4 SEC 153.4 SEC (24.3-30.1) (24.3-30.1) (24.3-30.1) Sodium Level 147 MEQ/L (136-145) Potassium Level 2.4 MEQ/L (3.5-5.1) Chloride Level 111 MEQ/L (98-107) Carbon Dioxide Level 15.9 MEQ/L (21.0-32.0) Anion Gap 20 MEQ/L (5-15) Blood Urea Nitrogen 43 MG/DL (7-18) Creatinine 3.01 MG/DL (0.60-1.30) Estimat Glomerular Filtration 20 ML/MIN (>89) Rate Random Glucose 454 MG/DL (74-106) Lactic Acid Level 10.7 mmol/L (0.4-2.0) Calcium Level 9.3 MG/DL (8.5-10.1) Phosphorus Level 1.7 MG/DL (2.5-4.9) Test 01/08/17 01/08/17 01/08/17 01/08/17 04:03 05:44 11:15 12:05 White Blood Count 10.4 TH/MM3 (4.0-11.0) Red Blood Count 4.28 MIL/MM3 (4.50-5.90) Hemoglobin 13.2 GM/DL (13.0-17.0) Hematocrit 39.2 % (39.0-51.0) Mean Corpuscular Volume 91.7 FL (80.0-100.0) Mean Corpuscular Hemoglobin 30.9 PG (27.0-34.0) Mean Corpuscular Hemoglobin 33.7 % Concent (32.0-36.0) Red Cell Distribution Width 13.1 % (11.6-17.2) Platelet Count 133 TH/MM3 (150-450) Mean Platelet Volume 9.9 FL (7.0-11.0) Neutrophils (%) (Auto) 68.7 % (16.0-70.0) Lymphocytes (%) (Auto) 19.9 % (9.0-44.0) Monocytes (%) (Auto) 11.3 % (0.0-8.0) Eosinophils (%) (Auto) 0.0 % (0.0-4.0) Basophils (%) (Auto) 0.1 % (0.0-2.0) Neutrophils # (Auto) 7.1 TH/MM3 (1.8-7.7) Lymphocytes # (Auto) 2.1 TH/MM3 (1.0-4.8) Monocytes # (Auto) 1.2 TH/MM3 (0-0.9) Eosinophils # (Auto) 0.0 TH/MM3 (0-0.4) Basophils # (Auto) 0.0 TH/MM3 (0-0.2) CBC Comment DIFF FINAL Differential Comment Prothrombin Time 14.3 SEC (9.8-11.6) Prothromb Time International 1.3 RATIO Ratio Activated Partial 61.1 SEC 92.4 SEC Thromboplast Time (24.3-30.1) (24.3-30.1) Sodium Level 145 MEQ/L 145 MEQ/L (136-145) (136-145) Potassium Level 2.4 MEQ/L 2.6 MEQ/L (3.5-5.1) (3.5-5.1) Chloride Level 108 MEQ/L 109 MEQ/L (98-107) (98-107) Carbon Dioxide Level 18.4 MEQ/L 21.1 MEQ/L (21.0-32.0) (21.0-32.0) Anion Gap 19 MEQ/L (5-15) 15 MEQ/L (5-15) Blood Urea Nitrogen 43 MG/DL (7-18) 48 MG/DL (7-18) Creatinine 3.19 MG/DL 3.23 MG/DL (0.60-1.30) (0.60-1.30) Estimat Glomerular Filtration 19 ML/MIN (>89) 19 ML/MIN (>89) Rate Random Glucose 470 MG/DL 307 MG/DL (74-106) (74-106) Lactic Acid Level 8.3 mmol/L (0.4-2.0) Calcium Level 9.0 MG/DL 8.8 MG/DL (8.5-10.1) (8.5-10.1) Phosphorus Level 1.0 MG/DL 1.7 MG/DL (2.5-4.9) (2.5-4.9) Magnesium Level 1.7 MG/DL 1.7 MG/DL (1.5-2.5) (1.5-2.5) Total Bilirubin 0.5 MG/DL (0.2-1.0) Aspartate Amino Transf 133 U/L (15-37) (AST/SGOT) Alanine Aminotransferase 54 U/L (12-78) (ALT/SGPT) Alkaline Phosphatase 62 U/L (45-117) Total Protein 4.9 GM/DL (6.4-8.2) Albumin 2.0 GM/DL (3.4-5.0) Blood Gas Puncture Site ART LINE Blood Gas Patient Temperature 98.6 Blood Gas HCO3 17 mmol/L (22-26) Blood Gas Base Excess -6.8 mmol/L (-2-2) Blood Gas Oxygen Saturation 91 % (90-100) Arterial Blood pH 7.44 (7.380-7.420) Arterial Blood Partial 25 mmHg (38-42) Pressure CO2 Arterial Blood Partial 65 mmHg Pressure O2 (61-120) Arterial Blood Oxygen Content 17.2 Vol % (12.0-20.0) Arterial Blood 1.4 % (0-4) Carboxyhemoglobin Arterial Blood Methemoglobin 1.1 % (0-2) Blood Gas Hemoglobin 13.5 G/DL (12.0-16.0) Oxygen Delivery Device VENTILATOR Blood Gas Ventilator Setting AC/24/600/PEEP5 Blood Gas Inspired Oxygen 40 % Troponin I 19.80 NG/ML (0.02-0.05) Test 01/08/17 01/08/17 01/08/17 01/08/17 12:30 16:00 17:00 18:00 Lactic Acid Level 5.5 mmol/L 3.3 mmol/L (0.4-2.0) (0.4-2.0) Activated Partial 59.0 SEC Thromboplast Time (24.3-30.1) Urine Total Volume 24 Hours 1750 ML Urine Calcium 24 Hour 147 MG/24HR (42-353) Sodium Level 144 MEQ/L (136-145) Potassium Level 2.9 MEQ/L (3.5-5.1) Chloride Level 109 MEQ/L (98-107) Carbon Dioxide Level 22.3 MEQ/L (21.0-32.0) Anion Gap 13 MEQ/L (5-15) Blood Urea Nitrogen 49 MG/DL (7-18) Creatinine 3.28 MG/DL (0.60-1.30) Estimat Glomerular Filtration 18 ML/MIN (>89) Rate Random Glucose 106 MG/DL (74-106) Calcium Level 8.6 MG/DL (8.5-10.1) Test 01/08/17 01/09/17 23:50 04:18 Activated Partial 59.7 SEC 67.4 SEC Thromboplast Time (24.3-30.1) (24.3-30.1) Lactic Acid Level 2.6 mmol/L 4.2 mmol/L (0.4-2.0) (0.4-2.0) White Blood Count 10.3 TH/MM3 (4.0-11.0) Red Blood Count 4.04 MIL/MM3 (4.50-5.90) Hemoglobin 12.4 GM/DL (13.0-17.0) Hematocrit 36.3 % (39.0-51.0) Mean Corpuscular Volume 89.9 FL (80.0-100.0) Mean Corpuscular Hemoglobin 30.6 PG (27.0-34.0) Mean Corpuscular Hemoglobin 34.0 % Concent (32.0-36.0) Red Cell Distribution Width 13.1 % (11.6-17.2) Platelet Count 121 TH/MM3 (150-450) Mean Platelet Volume 10.5 FL (7.0-11.0) Neutrophils (%) (Auto) 79.2 % (16.0-70.0) Lymphocytes (%) (Auto) 8.1 % (9.0-44.0) Monocytes (%) (Auto) 12.6 % (0.0-8.0) Eosinophils (%) (Auto) 0.0 % (0.0-4.0) Basophils (%) (Auto) 0.1 % (0.0-2.0) Neutrophils # (Auto) 8.1 TH/MM3 (1.8-7.7) Lymphocytes # (Auto) 0.8 TH/MM3 (1.0-4.8) Monocytes # (Auto) 1.3 TH/MM3 (0-0.9) Eosinophils # (Auto) 0.0 TH/MM3 (0-0.4) Basophils # (Auto) 0.0 TH/MM3 (0-0.2) CBC Comment AUTO DIFF Differential Total Cells 100 Counted Neutrophils % (Manual) 18 % (16-70) Band Neutrophils % 63 % (0-6) Lymphocytes % 5 % (9-44) Monocytes % 7 % (0-8) Neutrophils # (Manual) 9.1 TH/MM3 (1.8-7.7) Metamyelocytes 7 % (0-1) Differential Comment FINAL DIFF MANUAL Dohle Bodies PRESENT (NONE SEEN) Platelet Estimate LOW (NORMAL) Platelet Morphology Comment ENLARGED (NORMAL) Sodium Level 143 MEQ/L (136-145) Potassium Level 4.0 MEQ/L (3.5-5.1) Chloride Level 108 MEQ/L (98-107) Carbon Dioxide Level 19.7 MEQ/L (21.0-32.0) Anion Gap 15 MEQ/L (5-15) Blood Urea Nitrogen 56 MG/DL (7-18) Creatinine 3.93 MG/DL (0.60-1.30) Estimat Glomerular Filtration 15 ML/MIN (>89) Rate Random Glucose 145 MG/DL (74-106) Calcium Level 7.9 MG/DL (8.5-10.1) Phosphorus Level 2.9 MG/DL (2.5-4.9) Magnesium Level 1.6 MG/DL (1.5-2.5) Total Bilirubin 0.8 MG/DL (0.2-1.0) Aspartate Amino Transf 92 U/L (15-37) (AST/SGOT) Alanine Aminotransferase 44 U/L (12-78) (ALT/SGPT) Alkaline Phosphatase 62 U/L (45-117) Total Protein 4.9 GM/DL (6.4-8.2) Albumin 1.8 GM/DL (3.4-5.0) Result Diagram: 01/09/17 0418 01/09/17 0418 Microbiology Microbiology Date/Time Procedure Status Source Growth 01/06/17 17:00 Urine Culture - Preliminary Resulted Urine Catheterized Urine Group D Enterococcus 01/06/17 23:30 Gram Stain - Final Complete Sputum Endotracheal 01/06/17 23:30 Sputum Culture - Final Complete Sputum Endotracheal HEAVY GROWTH NORMAL RESPIRATORY OLE... 01/06/17 23:40 Urine Culture - Final Complete Urine Catheterized Urine NO GROWTH IN 48 HOURS. 01/07/17 09:55 Aerobic Blood Culture - Preliminary Resulted Blood Peripheral NO GROWTH IN 1 DAY 01/07/17 09:55 Anaerobic Blood Culture - Preliminary Resulted Blood Peripheral NO GROWTH IN 1 DAY 01/07/17 10:05 Aerobic Blood Culture - Preliminary Resulted Blood Peripheral NO GROWTH IN 1 DAY 01/07/17 10:05 Anaerobic Blood Culture - Preliminary Resulted Blood Peripheral NO GROWTH IN 1 DAY Imaging Last Impressions Chest X-Ray 01/08/17 0600 Signed Impressions: Service Date/Time: Sunday, January 08, 2017 04:43 - CONCLUSION: Mild right base consolidation or atelectasis. Edvin Miller MD Renal Ultrasound 01/07/17 0000 Signed Impressions: Service Date/Time: Saturday, January 07, 2017 09:21 - CONCLUSION: 1. Echogenic kidneys which can be seen with medical renal disease. 2. Bilateral renal cysts. Carlos Alberto Stewart MD Head CT 01/06/17 1740 Signed Impressions: Service Date/Time: Friday, January 06, 2017 19:15 - CONCLUSION: 1. No acute intracranial abnormality demonstrated. 2. Chronic white matter changes. 3. Sinusitis and near-complete opacification of the posterior nasopharynx, presumably related to secretions. Patient is intubated. After the patient is extubated, correlation for the possibility of a nasopharyngeal mass is recommended. Edvin Lucas MD Procedures * 01/07/17 -echocardiogram * 01/06/17 -left femoral central line insertion * 01/06/17 -endotracheal intubation . Patient/Family Conference Present at Family Conference: Patient's Mari, daughter Bairon and son Karthikeyan. Family Conference Time (mins): 46 Family Conference Location: Bedside Issues Discussed: * Palliative care role, purpose, approach * Additional medical, psychosocial, and spiritual history * Patients general health, functional status, and cognitive changes in the months leading up to the current hospitalization * Family's understanding of the current medical problems to include likely anoxic brain injury, cardiogenic shock and ATN. * Family's understanding of very poor prognosis for a meaningful clinical or neurological improvement * Patients goals of care as best understood from advance directives and/or conversations and/or values * Current medical treatment options and benefits/burdens of those options * Likely scenarios comparing ongoing aggressive care with a transition to comfort measures only * Questions answered to the best of my ability * Palliative care contact information provided . Assessment and Plan Disease Oriented Problem List: (1) Cardiac arrest (2) Cardiogenic shock (3) Acute respiratory failure Symptom Scale: (1) Shortness of breath 0-10 Scale: Unable to quantify Comment: Remains intubated on mechanical ventilation. (2) Pain 0-10 Scale: Unable to quantify Comment: History of chronic pain. Pertinent Non-Medical Issues Psychosocial: Retired. . Has 2 children. Spiritual: Islam. Legal: No living will completed. Ethical issues impacting care: Living will completed. . Important Contacts Mari Knox [phone]. . Prognosis Mr. Knox is a 76 y/o male with a medical history of coronary artery disease, prior myocardial infarcts, chronic left bundle branch block, cardiomyopathy, hypertension, aortic valve sclerosis, dyslipidemia, obstructive sleep apnea and chronic back pain. Patient status post cardiac arrest with return to spontaneous circulation after 55 minutes. Very poor prognosis for meaningful neurological/clinical recovery given prolonged CPR/55 min to ROS, patient's age, significant cardiac history with prior MIs and multiple comorbidities. Family electing to transition patient to comfort directed care/ withdrawal life support likely tonight after additional family members arrive. Patient's life expectancy of minutes to hours after withdrawal if illness runs is natural course. . Code Status: No Code Plan * CODE STATUS: No code. * DECISION-MAKING CAPACITY: Patient incapacitated secondary to clinical condition. [place], [place] decision-making falls to patient's Mari. * GOALS OF CARE: No code. Plan to withdrawal life support/transition to comfort -directed care likely tonight after additional family members visit. Family made aware that patient may not survive until then secondary to critical condition. Family verbalized understanding. Family meeting. In attendance patient's Mari, daughter Bairon and son Karthikeyan. Medical update provided. Review events leading to these hospitalization, clinical course and treatment plan. Explained pathophysiology of cardiac arrest and current clinical presentation to include likelihood of anoxic brain injury, cardiogenic shock and acute tubular necrosis. Reviewed very poor prognosis for meaningful neurological or clinical recovery given prolonged CPR/55 min to ROS, patient's age, significant cardiac history with prior MIs and multiple comorbidities. Family with a good understanding of his current clinical condition, family electing to withdrawal life support/transition to comfort directed care tonight after additional family members visit. * Exhibits in file. * SYMPTOMS: == Shortness of breath: Remains intubated on mechanical ventilation. Likely to withdraw tonight. == Pain: History of chronic pain. Fentanyl drip available. Family in agreement of starting fentanyl drip for comfort even if this lowers his blood pressure. ==Oropharyngeal secretions, adding Levsin as needed. * Case discussed with bedside RN. * Anticipatory guidance on signs and symptoms of end-of-life/withdrawal life support provided. * Spiritual services offered but declined. Family personalized living assistant to visit patient is afternoon. * Ongoing emotional support and active listening provided. * Palliative care contact information has been provided to family. . Time Spent Total Floor Time (mins): 88 (Total time to include review and summarization of available medical records to include prior hospitalizations, physical exam, bedside family meeting to discuss goals of care, and case discussion with Dr. Quezada and bedside RN.) >50% Counseling/Coord of Care: Yes Thank you for the opportunity to participate in the care of Mr. Knox. Attestation To help prompt me to consider important information that might be impacting today's encounter and assessment, information from prior notes written by myself or my colleagues may have been "brought forward" into today's note. My signature on this note, however, is an attestation that I personally performed the exam, history, and/or decision-making noted today, and, unless otherwise indicated, the interactions with patient, family, and staff as well as the review of records all occurred today. I also attest that the listed assessment and stated plan reflect my best clinical judgment today based on the combination of historical information, prior notes, and today's exam/ interactions. When time spent is documented, it refers only to time spent today by the signer, or if indicated, combined time spent today by collaborating physician/nurse practitioner. Nehal Madrid Jan 09, 2017 11:12
[2017-01-09] MEDS ORDERED: EPINEPHRINE IV SCH (12:45)
[2017-01-09] MEDS ORDERED: PHENYLEPHRINE INJ 160 MG in SODIUM CHLORID 0.9% 500 ML INJ 484 ML IV SCH ×2 (12:45→15:15)
[2017-01-09] MEDS ORDERED: TERBUTALINE INJ 1 MG/ML AMP SQ PRN ×2 (12:45→15:15)
[2017-01-09] MEDS ORDERED: SODIUM CHLOR 0.9% IV SCH (12:45)
[2017-01-09] MEDS ORDERED: HYOSCYAMINE 0.5 MG/ML AMP IV PRN (13:00)
[2017-01-09] MEDS: NOREPINEPHRINE INJ 16 MG in SODIUM CHLOR 0.9% 250 ML INJ 234 ML IV SCH ×2 (13:11→16:45)
--- NOTE | 2017-01-09 14:01 | HHI.CCPN ---
Subjective Remarks/Hospital Course 76-year-old male. Real name is Karthikeyan Zapata. 05/27/1932[address] Richmond. 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 He presented the [facility] with the following history. At home, patient was in an argument with her son and girlfriend. He certainly clashes heart. CPR was initiated by EMS. Each is noted to be in V. tach, V. fib possibly torsades and was in asystole upon arrival to [facility]. Patient received 9 mg epinephrine, 4 and 50 mg amiodarone, 3 mg lidocaine and 2 g magnesium prior to arrival. CPR continued this facility where he received 5 mill grams epinephrine , 2 ampules sodium bicarbonate, one ampule of calcium chloride and was defibrillated twice with 203 100 J. He is currently on a Levophed drip. All laboratory are currently pending with return of spontaneous circulation 55 minutes and a code. Patient is currently in decerebrate type positioning. Pupils are slightly reactive and sluggish. Overbreathing the ventilator. 01/07: Placed on hypothermia protocol overnight. Acquired one dose of Demerol for shivering. Currently well sedated on the ventilator. Minimal pupillary response. No gag. Does not withdraw to pain. 5 cc an hour urine output. 01/08: Afebrile. Patient is been rewarmed to 36 Celsius. Urine output increasing on Bumex drip. Currently not overbreathing the ventilator. No gag. Doesn't withdraw to pain. Continues on Versed and fentanyl drip weaning off Subjective 01/09: Currently afebrile. Increased vasopressor overnight currently on 4 different vasopressors. Currently DNR status. Plan to withdrawal care once family rise. Decreased urine output. Increased O2 requirements Objective Vital Signs Date Time Temp Pulse Resp B/P Pulse Ox O2 Delivery O2 Flow Rate FiO2 01/09/17 12:26 98 70 01/09/17 06:00 127 01/09/17 04:00 100.0 24 73/34 72/45 01/06/17 18:05 Ventilator Intake and Output 01/08/17 01/08/17 01/09/17 08:00 16:00 00:00 Intake Total 1768 ml 2812 ml 1820 ml Output Total 655.0 ml 958 ml 1215.0 ml Balance 1113.0 ml 1854 ml 605.0 ml Result Diagram: 01/09/17 0418 01/09/17 0418 Other Results Microbiology Date/Time Procedure Status Source Growth 01/07/17 10:05 Aerobic Blood Culture - Preliminary Resulted Blood Peripheral NO GROWTH IN 2 DAYS 01/07/17 10:05 Anaerobic Blood Culture - Preliminary Resulted Blood Peripheral NO GROWTH IN 2 DAYS 01/06/17 23:40 Urine Culture - Final Complete Urine Catheterized Urine NO GROWTH IN 48 HOURS. 01/06/17 23:30 Gram Stain - Final Complete Sputum Endotracheal 01/06/17 23:30 Sputum Culture - Final Complete Sputum Endotracheal HEAVY GROWTH NORMAL RESPIRATORY OLE... Imaging Last 72 hours Impressions Chest X-Ray 01/08/17 0600 Signed Impressions: Service Date/Time: Sunday, January 08, 2017 04:43 - CONCLUSION: Mild right base consolidation or atelectasis. Edvin Miller MD Chest X-Ray 01/07/17 0600 Signed Impressions: Service Date/Time: Saturday, January 07, 2017 04:46 - CONCLUSION: Mild consolidation or atelectasis in the left upper lung. Edvin Miller MD Renal Ultrasound 01/07/17 0000 Signed Impressions: Service Date/Time: Saturday, January 07, 2017 09:21 - CONCLUSION: 1. Echogenic kidneys which can be seen with medical renal disease. 2. Bilateral renal cysts. Carlos Alberto Stewart MD Head CT 01/06/17 1740 Signed Impressions: Service Date/Time: Friday, January 06, 2017 19:15 - CONCLUSION: 1. No acute intracranial abnormality demonstrated. 2. Chronic white matter changes. 3. Sinusitis and near-complete opacification of the posterior nasopharynx, presumably related to secretions. Patient is intubated. After the patient is extubated, correlation for the possibility of a nasopharyngeal mass is recommended. Edvin Lucas MD Chest X-Ray 01/06/17 1714 Signed Impressions: Service Date/Time: Friday, January 06, 2017 17:12 - CONCLUSION: ET tube terminates at the albaro pull back 3-4 cm recommended. Greg Oakes MD Objective Remarks GENERAL: 76-year-old male, critically ill currently resting in bed in no acute distress SKIN: Cool and dry. Noted subtle area ecchymosis mid thorax from bruising HEAD: Atraumatic. Normocephalic. EYES: Pupils equal and round about 2 mm bilaterally and sluggish. No scleral icterus. No injection or drainage. ENT: No nasal bleeding or discharge. Mucous membranes pink and moist. Orotracheally intubated NECK: Trachea midline. No JVD. Supple CARDIOVASCULAR: RRR. S1, S2. No S4. I do not appreciate murmur RESPIRATORY: Diminished breath sounds throughout due to body habitus. Breath sounds equal bilaterally. GASTROINTESTINAL: Abdomen soft, obese. Bowel sounds are not appreciated. Hepatic and splenic margins not palpable. MUSCULOSKELETAL: Extremities with trace lower extremity nonpitting edema. No obvious deformities. NEUROLOGICAL: Sedate on the ventilator. Really no corneal reflex. Currently no gag. Does not withdraw to pain or noxious stimuli. Urinary Catheter: Yes Assessment to: Continue Soler insert reason: ICU Pt Getting Diuretics Vascular Central Line Catheter: Yes Assessment to: Continue Date of Insertion: Jan 06, 2017 Line: Central Venous Catheter Side: Right Location: Femoral A/P Assessment and Plan Neuro/Psych: Acute encephalopathy rule out anoxic brain injury CT head revealed no acute intracranial findings. Possible mass posterior nasopharynx will likely need reimaging post extubation Currently off all sedation Goal of RASS 0 Daily sedation vacation when clinically indicated Hypothermia protocol discontinued completed 24-hour CV: Witnessed V. tach arrest Coronary disease History of ND 5 Dilated cardiopathy ejection was 37% 2012 Aortic valve sclerosis Hypertension Lactic acidosis Dr. Wallis/cardiology notified. Dr. Richmond's patient EKG revealed sinus bradycardia/left bundle branch block which is chronic. Troponin peaked at greater than 40 currently 32 Cardia revealed diffuse hypokinesis. EF 20/5/30 percent. Mild MR/TR. FLORIDALMA 37 mmHg mild to moderate. Currently fusion On aspirin 81 mg daily Lipitor 40 milligrams by mouth daily. Currently norepinephrine at 50 mcg/m. Add vasopressin at 0.04 units an hour and epinephrine at 10 mg a minute to maintain MAP >65 Added Jonathon-Synephrine up to 300 g a minute Lactate initially trending down currently around 5.6. Currently elevated On heparin drip for ND. Resp: Acute hypoxemic respiratory failure History of obstructive sleep apnea ACV 24/600/5/40 Ventilator bundle Bronchodilator therapy every 6 hours and as needed Spontaneous breathing trials when clinically indicated Possible left upper lobe infiltrate on chest x-ray. No pneumothorax GI: Elevated AST - likely cardiac Patient is currently nothing by mouth Start Glucerna 1.5 goal 55 cc an hour really not tolerating Protonix for GI prophylaxis Colace/ Senokot twice a day for bowel regimen Added Reglan for prokinetic agent : Soler will be placed for accurate I's and O's in a critically ill patient Endo: Hypothyroidism Elevated parathyroid hormone Insulin drip algorithm #3 Continue Levoxyl 25 g by mouth daily. TSH within normal limits Will need parathyroid scan when appropriate Check vitamin D 25 currently low. 24 urine calcium pending Renal: Acute kidney injury Follow-up on BMP. Currently Bumex drip at 1 mg an hour. No plans for hemodialysis at this time. Heme: Chronic Xarelto use Leukocytosis Thrombocytopenia Recheck CBC in AM. Monitor trends. Re-Check coags in a.m. currently 1.4 ID: UTI E faecalis Monitor for infection Day #4 cefepime day #3 daily Flagyl Blood cultures / negative Sputum 2/ negative UA with enterococcus faecalis MSK: Morbid obesity DJD Weight loss encouraged. PT evaluate and treat FEN: Hypo-magnesium Hypernatremia Hypophosphatemia Hypo-magnesium IV fluids continue with sterile water with 2 ampules of sodium bicarbonate at 75 cc an hour Access - Currently with left femoral cooling catheter day #3. We'll discontinue in a.m. Prophylaxis - GI - Protonix - DVT - SCD/Xarelto use -on heparin drip for ND Critical Care: The total care time was 35 minutes. Time to perform other separately billable procedures was not included in the critical care time. updated bedside Plan is to withdrawal care tonight with family present 8 PM. Frank Ansari MD Jan 09, 2017 14:01
[2017-01-09] MEDS ORDERED: VASOPRESSIN INJ 40 UNITS in SODIUM CHLORIDE 0.9% INJ 100 ML IV SCH (16:24)
[2017-01-09] MEDS ORDERED: HYOSCYAMINE 0.5 MG/ML AMP IV ONE (16:30)
[2017-01-09] MEDS ORDERED: LORazepam 2 MG/ML VIAL IV ONE ×2 (16:30→16:45)
[2017-01-09] MEDS ORDERED: fentaNYL DRIP 250 ML IV SCH (16:30)
[2017-01-09] MEDS ORDERED: LORazepam 2 MG/ML VIAL IVS PRN (17:00)
[2017-01-09] MEDS ORDERED: LORazepam 2 MG/ML VIAL IV PRN ×2 (17:00)
[2017-01-09] MEDS ORDERED: LORazepam 2 MG/ML VIAL IV SCH (20:00)
[2017-01-11 17:58] LABS: CRITICAL VALUE YES
--- NOTE | 2017-02-12 12:38 | HHI.DS ---
Summary Note Date of : Jan 09, 2017 Time Of : 1755 Admission Date Jan 06, 2017 at 17:11 Admitting Diagnosis S/P Cardiac arrest Diagnosis at Time of : (1) Cardiac arrest ICD Code: I46.9 Diagnosis: Principal (2) V tach ICD Code: I47.2 Diagnosis: Principal (3) Coronary artery disease ICD Code: I25.10 Diagnosis: Principal (4) Dilated cardiomyopathy ICD Code: I42.0 Diagnosis: Principal (5) Aortic valve sclerosis ICD Code: I35.8 Diagnosis: Principal (6) Left bundle branch block ICD Code: I44.7 Diagnosis: Principal (7) Anticoagulant long-term use ICD Code: Z79.01 Diagnosis: Principal (8) Hypothyroidism ICD Code: E03.9 Diagnosis: Principal (9) Osteoarthritis ICD Code: M19.90 Diagnosis: Principal (10) Cardiogenic shock ICD Code: R57.0 Diagnosis: Principal (11) Obstructive sleep apnea ICD Code: G47.33 Diagnosis: Principal (12) Acute respiratory failure ICD Code: J96.00 Diagnosis: Principal Procedures None Brief History 76-year-old male. Real name is Karthikeyan Zapata. [birth year][address] Richmond. 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 He presented the [facility] with the following history. At home, patient was in an argument with her son and girlfriend. He certainly clashes heart. CPR was initiated by EMS. Each is noted to be in V. tach, V. fib possibly torsades and was in asystole upon arrival to [facility]. Patient received 9 mg epinephrine, 4 and 50 mg amiodarone, 3 mg lidocaine and 2 g magnesium prior to arrival. CPR continued this facility where he received 5 mill grams epinephrine , 2 ampules sodium bicarbonate, one ampule of calcium chloride and was defibrillated twice with 203 100 J. He is currently on a Levophed drip. All laboratory are currently pending with return of spontaneous circulation 55 minutes and a code. Patient is currently in decerebrate type positioning. Pupils are slightly reactive and sluggish. Overbreathing the ventilator. Significant Findings Echocardiogram revealed diffuse hypokinesis. EF 25-30 percent. Mild MR/TR. FLORIDALMA 37 mmHg mild to moderate. Imaging Last 72 hours Impressions Chest X-Ray 01/08/17 0600 Signed Impressions: Service Date/Time: Sunday, January 08, 2017 04:43 - CONCLUSION: Mild right base consolidation or atelectasis. Edvin Miller MD Chest X-Ray 01/07/17 0600 Signed Impressions: Service Date/Time: Saturday, January 07, 2017 04:46 - CONCLUSION: Mild consolidation or atelectasis in the left upper lung. Edvin Miller MD Renal Ultrasound 01/07/17 0000 Signed Impressions: Service Date/Time: Saturday, January 07, 2017 09:21 - CONCLUSION: 1. Echogenic kidneys which can be seen with medical renal disease. 2. Bilateral renal cysts. Carlos Alberto Stewart MD Head CT 01/06/17 1740 Signed Impressions: Service Date/Time: Friday, January 06, 2017 19:15 - CONCLUSION: 1. No acute intracranial abnormality demonstrated. 2. Chronic white matter changes. 3. Sinusitis and near-complete opacification of the posterior nasopharynx, presumably related to secretions. Patient is intubated. After the patient is extubated, correlation for the possibility of a nasopharyngeal mass is recommended. Edvin Lucas MD Chest X-Ray 01/06/17 1714 Signed Impressions: Service Date/Time: Friday, January 06, 2017 17:12 - CONCLUSION: ET tube terminates at the albaro pull back 3-4 cm recommended. Greg Oakes MD Hospital Course Neuro/Psych: Acute encephalopathy rule out anoxic brain injury CT head revealed no acute intracranial findings. Possible mass posterior nasopharynx will likely need reimaging post extubation Currently off all sedation Goal of RASS 0 Daily sedation vacation when clinically indicated Hypothermia protocol discontinued completed 24-hour CV: Witnessed V. tach arrest Coronary disease History of ME 5 Dilated cardiopathy ejection was 37% 2012 Aortic valve sclerosis Hypertension Lactic acidosis Dr. Wallis/cardiology notified. Dr. Richmond's patient EKG revealed sinus bradycardia/left bundle branch block which is chronic. Troponin peaked at greater than 40 currently 32 Cardia revealed diffuse hypokinesis. EF 20/5/30 percent. Mild MR/TR. FLORIDALMA 37 mmHg mild to moderate. Currently fusion On aspirin 81 mg daily Lipitor 40 milligrams by mouth daily. Currently norepinephrine at 50 mcg/m. Add vasopressin at 0.04 units an hour and epinephrine at 10 mg a minute to maintain MAP >65 Added Jonathon-Synephrine up to 300 g a minute Lactate initially trending down currently around 5.6. Currently elevated On heparin drip for ME. Resp: Acute hypoxemic respiratory failure History of obstructive sleep apnea ACV 24/600/5/40 Ventilator bundle Bronchodilator therapy every 6 hours and as needed Spontaneous breathing trials when clinically indicated Possible left upper lobe infiltrate on chest x-ray. No pneumothorax GI: Elevated AST - likely cardiac Patient is currently nothing by mouth Start Glucerna 1.5 goal 55 cc an hour really not tolerating Protonix for GI prophylaxis Colace/ Senokot twice a day for bowel regimen Added Reglan for prokinetic agent : Soler will be placed for accurate I's and O's in a critically ill patient Endo: Hypothyroidism Elevated parathyroid hormone Insulin drip algorithm #3 Continue Levoxyl 25 g by mouth daily. TSH within normal limits Will need parathyroid scan when appropriate Check vitamin D 25 currently low. 24 urine calcium pending Renal: Acute kidney injury Follow-up on BMP. Currently Bumex drip at 1 mg an hour. No plans for hemodialysis at this time. Heme: Chronic Xarelto use Leukocytosis Thrombocytopenia Recheck CBC in AM. Monitor trends. Re-Check coags in a.m. currently 1.4 ID: UTI E faecalis Monitor for infection Day #4 cefepime day #3 daily Flagyl Blood cultures negative Sputum 01/06 negative UA with enterococcus faecalis MSK: Morbid obesity DJD Weight loss encouraged. PT evaluate and treat FEN: Hypo-magnesium Hypernatremia Hypophosphatemia Hypo-magnesium IV fluids continue with sterile water with 2 ampules of sodium bicarbonate at 75 cc an hour Access - Currently with left femoral cooling catheter day #3. We'll discontinue in a.m. Prophylaxis - GI - Protonix - DVT - SCD/Xarelto use -on heparin drip for ME Critical Care: The total care time was 35 minutes. Time to perform other separately billable procedures was not included in the critical care time. updated bedside Plan is to withdrawal care tonight with family present 8 PM. Frank Ansari MD Feb 12, 2017 12:38
== END 2017-01-09 17:55 | disposition expired | DRG 308 ==
LOC: NEPA 16:15 → MERGE 17:11 → EDBD 17:11 → NEDA 17:11 → HIME 18:35
PROVIDERS: ADMIT Internal Medicine Critical Care Medicine; ATTEND Internal Medicine Critical Care Medicine
PROC: 5A2204Z Restoration of Cardiac Rhythm, Single (ICD-10-PCS; principal; 2017-01-06)
PROC: 5A1945Z Respiratory Ventilation, 24-96 Consecutive Hours (ICD-10-PCS; 2017-01-06)
PROC: 5A2204Z Restoration of Cardiac Rhythm, Single (ICD-10-PCS; 2017-01-06)
PROC: 06HM33Z Insertion of Infusion Device into Right Femoral Vein, Percutaneous Approach (ICD-10-PCS; 2017-01-06)
PROC: 06HN33Z Insertion of Infusion Device into Left Femoral Vein, Percutaneous Approach (ICD-10-PCS; 2017-01-06)
DX: I49.01 Ventricular fibrillation (principal); J96.01 Acute respiratory failure with hypoxia; K72.00 Acute and subacute hepatic failure without coma; N17.0 Acute kidney failure with tubular necrosis; R57.0 Cardiogenic shock; E87.2 Acidosis; D69.6 Thrombocytopenia, unspecified; J98.11 Atelectasis; G93.1 Anoxic brain damage, not elsewhere classified; E87.0 Hyperosmolality and hypernatremia; N39.0 Urinary tract infection, site not specified; I42.0 Dilated cardiomyopathy; E83.42 Hypomagnesemia; E66.01 Morbid (severe) obesity due to excess calories; I25.5 Ischemic cardiomyopathy; I25.10 Atherosclerotic heart disease of native coronary artery without angina pectoris; I50.9 Heart failure, unspecified; I35.8 Other nonrheumatic aortic valve disorders; I44.7 Left bundle-branch block, unspecified; I47.2 Ventricular tachycardia; I48.91 Unspecified atrial fibrillation; G47.33 Obstructive sleep apnea (adult) (pediatric); I10 Essential (primary) hypertension; E78.5 Hyperlipidemia, unspecified; Z96.653 Presence of artificial knee joint, bilateral; E03.9 Hypothyroidism, unspecified; I25.2 Old myocardial infarction; Z87.891 Personal history of nicotine dependence; Z79.01 Long term (current) use of anticoagulants; Z66 Do not resuscitate; M19.90 Unspecified osteoarthritis, unspecified site; M54.5 Low back pain; G89.29 Other chronic pain; I44.0 Atrioventricular block, first degree; N28.1 Cyst of kidney, acquired; Z51.5 Encounter for palliative care; E83.39 Other disorders of phosphorus metabolism; E87.6 Hypokalemia; J39.2 Other diseases of pharynx
CPT/HCPCS: 36556; 36600; 36620; 70450; 71010; 76775; 76937; 80048; 80053; 80061; 80307; 81001; 82306; 82340; 82550; 82652; 82805; 82948; 83520; 83605; 83735; 83970; 84100; 84443; 84484; 85007; 85025; 85027; 85610; 85730; 86850; 86900; 86901; 87040; 87070; 87077; 87086; 87186; 87205; 87641; 92950; 93005; 93306; 94002; 94003; 94640; 94664; 95819; C9113; J0171; J0692; J1644; J1817; J2060; J2175; J2250; J2370; J2765; J3010; J3475; J3480; J7030; J7040; J7050; J7060; J7070; J7120